=== PATIENT | female | born 1960 | race Caucasian/White ===

== ENCOUNTER 2017-04-22 11:06 | Inpatient (IN) | payer OTHER ==
[~2017-04-22] VITALS: Ht 167.6 cm; Wt 89.0 kg
[~2017-04-22 11:06] MED LIST: ALBUTEROL 3 ML3 ML INH; ATORVASTATIN CA20 MG PO; AUGMENTIN 875 M1 TAB PO; AZITHROMYCIN D250 MG PO; BUTRANS20 MCG/HR TOP; CARAFATE 1GM1000 MG PO; CYCLOBENZAPRINE10 M1 PO; DIAZEPAM5 MG PO; DILAUDID2 MG PO; FERROUS SULFAT325 M1 PO; HYDRODIURIL 5050 MG PO; HYDROMORPHONE HC2 MG PO; KEPPRA1000 MG PO; KETOROLAC TROME10 M1 PO; LEVETIRACETAM500 MG PO; LEVOFLOXACIN500 MG PO; LIORESAL 10MG T10 MG PO; MACRODANTIN 50M50 MG PO; MAG-OX 400400 MG PO; MASON NATURAL325 MG PO; MELOXICAM7.5 MG PO; MILK OF MAGNESI30 ML PO; MOBIC15 M1 PO; MOTRIN 600 MG600 MG PO; NATURAL IRON65 MG PO; OXYCODONE HYDRO10 M1 PO; OXYCODONE5 MG PO; OXYCONTIN10 MG PO; PANTOPRAZOLE SO40 MG PO; PERCOCET 325 MG1 TA2 PO; PERCOCET 325 MG1 TAB; PERCOCET 325 MG1 TAB PO; PERCOCET 5-3251 EACH PO; PERCODAN 325 MG1 TAB PO; POTASSIUM CHLO20 ME1 PO; POTASSIUM GLUC500 MG PO; POTASSIUM GLUC550 MG PO; PREDNICOT20 MG PO; PREDNISONE 20MG20 MG PO; PRILOSEC 20MG C20 MG PO; PROTONIX 40MG T40 MG PO; QUETIAPINE FUM100 MG PO; ROBAXIN500 M1 PO; SEROQUEL 100MG100 MG PO; TEMOVATE0.05% TOP; TIZANIDINE HCL2 MG PO; TRAMADOL HCL50 MG PO; TRAMADOL50 MG PO; TYLENOL TAB 32325 MG PO; VALIUM 10 MG. T10 MG PO; VENTOLIN1 PUF INH; VICODIN 5-3001 EACH PO; VITAB121000 PO; VITAMIN D1000 IU PO; XANAX 0.25MG0.25 MG PO; ZOFRAN 8MG8 MG PO
--- NOTE | 2017-04-22 11:22 | ED DYSPNEA/ASTHMA COMPLAINT ---
History of Present Illness General Chief Complaint: Dyspnea (COPD, CHF, Other) Stated Complaint: SOB ABD PAIN Source: patient Exam Limitations: no limitations Vital Signs & Intake/Output Vital Signs & Intake/Output Vital Signs Date Time Temp Pulse Resp B/P B/P Pulse O2 O2 Flow FiO2 Mean Ox Delivery Rate 04/23 0115 101.1 110 20 130/81 98 Room Air 04/22 2257 97.1 111 24 124/93 99 Room Air Room Air 04/22 1546 93 16 153/96 96 Room Air 04/22 1500 97.8 04/22 1425 94/56 04/22 1346 97.7 99 20 91/71 93 Room Air 04/22 1135 20 100 04/22 1113 97.0 94 20 120/87 ED Intake and Output 04/23 0000 04/22 1200 Intake Total 4000 Output Total 150 Balance 3850 Intake, IV 4000 Number 6 Bowel Movements Output, Urine 150 Patient 160 lb Weight Weight Reported by Patient Measurement Method Allergies Coded Allergies: No Known Allergies (10/17/16) Triage Note: PT C/O ABDOMINAL PAIN AND SOB SINCE LAST NIGHT. STATES THIS MORNING STARTED WITH N/V/D.. Triage Nurses Notes Reviewed? yes Onset: Abrupt Duration: day(s): (1), constant, continues in ED, getting worse Timing: single episode today Severity: moderate, severe Activities at Onset: none Prior Episodes/Possible Cause: occasional episodes Modifying Factors: Worsens With: movement. Associated Symptoms: anxiety, loss of appetite, NAUSEA, VOMITING, DIARRHEA, SHORTNESS OF BREATH LMP (ages 10-50): post menopausal : No Patient currently breastfeeds: No HPI: 57-year-old female past medical history of chronic back pain, multiple sclerosis , opioid dependence, COPD, mesothelioma status post right lobectomy, pancreatitis and anxiety presents for evaluation of shortness of breath and abdominal pain. Patient states that symptoms began acutely this morning and have been getting worse. Pain is located diffusely in her lower abdomen and does not radiate. Discussed pain is sharp stabbing pain. She states she's never had this pain before. It associated with nausea vomiting and diarrhea. No blood. Unsure exactly how many episodes of each she has had. She also reports associated shortness of breath and anxiety. No coughing hemoptysis or chest pain. No fever no new back pain. She is not taking any medicine for this. She states that the pain is a 10 out of 10. It gets worse with sitting forward and lying back. No recent surgeries or trauma. No lower extremity edema. (Gautam Mccray) Reconcile Medications Calcium Carbonate (TUMS) 200 MG CALCIUM (500 MG) TAB.CHEW 2 TAB PO Q4 GERD ( Reported) Hydrochlorothiazide 50 MG TABLET 1 TAB PO QAM DIURETIC (Reported) Levetiracetam 1,000 MG TABLET 1 TAB PO BID SEIZURES (Reported) Quetiapine Fumarate 100 MG TABLET 1 TAB PO QAM sleep (Reported) Quetiapine Fumarate 100 MG TABLET 5 TAB PO QHS SLEEP (Reported) (Praveen ALLEN,dAonay Lam) Past History Travel History Traveled to [place] past 21 day No Medical History Any Pertinent Medical History? see below for history Neurological: multiple sclerosis, seizure Cardiovascular: hypertension Respiratory: COPD, pneumonia, Mesothelioma S/P right lobectomy Gastrointestinal: GERD, pancreatitis, Cholecystitis S/P ERCP Musculoskeletal: chronic back pain, disk herniation (L 3, 4, 5), osteoarthritis, SPINAL FUSION Psychiatric: opioid dependence Cancer(s): MESOTHELIOMA History of MRSA: No History of VRE: No History of CDIFF: No Surgical History Surgical History: hysterectomy, spinal fusion, LAMINECTOMY MASECTOMY RIGHT LUNG REMOVED 12 RIBS REMOVED R lobectomy, rib resection right lobectomy Psychosocial History Who do you live with Spouse Services at Home None What is your primary language Divehi Tobacco Use: Quit >30 days ago ETOH Use: denies use Illicit Drug Use: denies illicit drug use Family History Family History, If Any: FATHER (myocardial infarction). MOTHER (lewy body dementia). Hx Contributory? No (Gautam Mccray) Review of Systems Review of Systems Constitutional: Reports: no symptoms. EENTM: Reports: no symptoms. Respiratory: Reports: see HPI, short of breath. Cardiovascular: Reports: no symptoms. GI: Reports: see HPI, abdominal pain, diarrhea, nausea, vomiting. Genitourinary: Reports: no symptoms. Musculoskeletal: Reports: no symptoms. Skin: Reports: no symptoms. Neurological/Psychological: Reports: no symptoms. Hematologic/Endocrine: Reports: no symptoms. Immunologic/Allergic: Reports: no symptoms. All Other Systems: Reviewed and Negative (Gautam Mccray) Physical Exam Physical Exam General Appearance: well developed/nourished, alert, awake, anxious, severe distress Head: atraumatic, normal appearance Eyes: Bilateral: normal appearance, PERRL, EOMI. Ears, Nose, Throat: hearing grossly normal Neck: normal inspection, supple, full range of motion Respiratory: normal breath sounds, chest non-tender, no respiratory distress, lungs clear Cardiovascular: regular rate/rhythm, normal peripheral pulses Peripheral Pulses: 2+ radial (R), 2+ radial (L) Gastrointestinal: normal bowel sounds, soft, no organomegaly, tenderness ( DIFFUSE WORSE LOWER QUADRANTS) Extremities: normal inspection, normal range of motion, no edema Neurologic/Psych: no motor/sensory deficits, awake, alert, oriented x 3 Skin: intact, normal color, warm/dry Lymphatic: no anterior cervical avery Core Measures ACS in differential dx? Yes CVA/TIA Diagnosis No Sepsis Present: No Sepsis Focused Exam Completed? Yes (Frank CADE,Gautam) Progress Differential Diagnosis: AMI, bronchitis, CHF, COPD, pulmonary embolism, pneumonia, ACUTE PANCREATITIS, CHOLECYSTITIS, APPENDICITIS, SMALL BOWEL OBSTRUCTION, DIVERTICULITIS Plan of Care: Orders Procedure Date/time Status Nothing by Mouth 04/23 B Active CBC WITHOUT DIFFERENTIAL 04/23 06 Active BASIC ELECTROLYTES PLUS BUN&CR 04/23 0600 Active TROPONIN LEVEL 04/23 0400 Active EKG 04/23 0400 Active LACTIC ACID 04/23 0300 Active RAPID VIRAL INFLUENZA A 04/23 0210 Complete Add-on Test (ER Only) 04/22 2215 Active EKG 04/22 2200 Active STOOL:R/O VIBRIO 04/22 2137 Active Pathway - chart 04/22 2121 Active BLOOD CULTURE 04/22 2118 Active Code Status 04/22 2118 Active TROPONIN LEVEL 04/22 2047 Complete CALCIUM 04/22 2047 Complete Pathway - chart 04/22 2046 Active House Staff 04/22 2046 Active LACTIC ACID 04/22 2046 Complete CULTURE,URINE 04/22 1906 Active URINE DRUGS OF ABUSE 04/22 1906 Complete Misc Message 04/22 1846 Active ED Holding Orders 04/22 1846 Active Admit to inpatient 04/22 1846 Active Vital Signs 04/22 1846 Active Code Status 04/22 1846 Complete Patient Data 04/22 1834 Active EKG 04/22 1630 Active LACTIC ACID 04/22 1432 Complete CULTURE,STOOL 04/22 1419 Active OVA AND PARASITE ANTIGENS 04/22 1419 Active C.DIFFICILE 04/22 1419 Active URINALYSIS 04/22 1307 Complete PARATHYROID HORMONE 04/22 1227 Complete TROPONIN LEVEL 04/22 1132 Complete MAGNESIUM 04/22 1132 Complete LIPASE 04/22 1132 Complete LACTIC ACID 04/22 1132 Complete D-DIMER 04/22 1132 Complete C-REACTIVE PROTEIN 04/22 1132 Complete COMPREHENSIVE METABOLIC PANEL 04/22 1132 Complete CBC WITHOUT DIFFERENTIAL 04/22 1132 Complete Intake & Output 04/22 1123 Active EKG 04/22 1107 Active Lab Add-on Test 04/22 UNK Active VTE Mechanical Prophylaxis 04/22 UNK Active Vital Signs 04/22 UNK Active Isolation 04/22 UNK Active Intake & Output 04/22 UNK Active ECHOCARDIOGRAM 04/22 UNK Active Current Medications Sig/Trace Start time Last Medication Dose Stop Time Status Admin Ceftriaxone Sodium 1,000 MG DAILY 04/23 1000 AC (Rocephin) Quetiapine Fumarate 100 MG QAM 04/23 1000 AC (Seroquel) Acetaminophen 1,000 MG Q8P PRN 04/23 0145 AC (Ofirmev) N/A 1 UNIT (No Carrier) Vancomycin HCl 125 MG Q6 04/23 0145 AC Lactated Ringer's 1,000 ML ONCE ONE 04/23 0115 AC (Lactated Ringers) 04/23 0314 Metronidazole 500 MG IQ8 04/23 0000 AC 04/23 (Flagyl) 0042 N/A 1 UNIT (No Carrier) Quetiapine Fumarate 500 MG AT BEDTIME 04/22 2345 AC 04/23 (Seroquel) 0042 Lactated Ringer's 1,000 ML Q10H 04/22 2330 AC 04/23 (Lactated Ringers) 04/24 0529 0043 Heparin Sodium 5,000 UNIT Q8 04/22 2200 AC 04/22 (Porcine) 2254 Levetiracetam 1,000 MG BID 04/22 2200 AC 04/22 (Keppra) 2254 Acetaminophen 1,000 MG Q8P PRN 04/22 2130 AC (Ofirmev) N/A 1 UNIT (No Carrier) Morphine Sulfate 2 MG Q4-6 PRN PRN 04/22 2130 AC (Morphine) Oxycodone HCl 5 MG Q6H 04/22 2130 AC 04/22 (Roxicodone) 2254 Trimethobenzamide HCl 200 MG TID PRN 01/06 2130 AC (Tigan) Hydromorphone HCl 1 MG ONCE ONE 04/22 1145 CAN (Dilaudid) 04/22 114 Ondansetron HCl 4 MG ONCE ONE 04/22 1145 CAN (Zofran) 04/22 1146 Laboratory Tests 04/23/17 0025: Lactic Acid 6.8 H 04/23/17 0025: Calcium 9.5, Troponin I 0.02 04/22/17 2131: Methadone Screen Cancelled, Barbiturate Screen Cancelled, Ur Phencyclidine Scrn Cancelled, Amphetamines Screen Cancelled, U Benzodiazepines Scrn Cancelled, Urine Cocaine Screen Cancelled, Urine Cannabis Screen Cancelled 04/22/17 2048: Calcium Cancelled 04/22/17 1906: Urine Opiates Screen 1716.00, Methadone Screen 77, Barbiturate Screen < 60, Ur Phencyclidine Scrn 14.40, Amphetamines Screen < 100, U Benzodiazepines Scrn < 85 , Urine Cocaine Screen < 50, Urine Cannabis Screen 74.50 H, Urine Color ORANG H, Urine Clarity CLEAR, Urine pH 6.5, Ur Specific [place] >= 1.030, Urine Protein TRACE H, Urine Ketones TRACE H, Urine Nitrite NEG, Urine Bilirubin NEG @ICTO, Urine Urobilinogen 1.0, Ur Leukocyte Esterase NEG, Ur Microscopic SEDIMENT EXAMINED, Urine WBC 3-5 H, Ur Epithelial Cells FEW, Urine Bacteria MANY H, Hyaline Casts FEW H, Granular Casts FEW H, Urine Mucus FEW, Urine Hemoglobin NEG, Urine Glucose NEG 04/22/17 1630: Troponin I Cancelled 04/22/17 1541: Lactic Acid 4.9 H 04/22/17 1227: Anion Gap 19 H, Estimated GFR 57 L, BUN/Creatinine Ratio 21.0, Glucose 168 H, Lactic Acid 3.1 H, Calcium 11.2 H, Magnesium 2.3, Total Bilirubin 0.5, AST 36, ALT 32, Alkaline Phosphatase 177 H, Troponin I < 0.01, C-Reactive Prot, Quant < 0.5, Total Protein 7.7, Albumin 4.6, Globulin 3.1, Albumin/Globulin Ratio 1.5, Lipase 34, PTH Intact 18.6, D-Dimer High Sensitivty 526 H, CBC w Diff MAN DIFF ORDERED, RBC 4.85, MCV 98.3, MCH 32.3 H, RDW 12.6, MPV 8.4, Gran % 84.2 H, Lymphocytes % 10.7 L, Monocytes % 4.7, Eosinophils % 0.2, Basophils % 0.2, Absolute Granulocytes 14.3 H, Segmented Neutrophils 71, Band Neutrophils 7 H, Absolute Lymphocytes 1.8, Lymphocytes 17 L, Monocytes 5, Absolute Monocytes 0.8 H, Absolute Eosinophils 0, Absolute Basophils 0, Platelet Estimate VERIFIED BY SMEAR, Normocytic RBCs VERIFIED, Normochromic RBCs VERIFIED, PUBS MCHC 32.9 L Microbiology 04/23 0213 NASOPHARYN: Influenza Virus A & B Rapid Smear - COMP 04/23 0055 BLOOD: Blood Culture - RECD 04/230 BLOOD: Blood Culture - RECD 04/22 2124 URINE ROUT: Urine Culture - CAN Cancelled: Cancelled via OE: DONE ADD ON 04/22 190 URINE ROUT: Urine Culture - RECD 04/22 1519 STOOL: Vibrio Culture - RECD 04/22 1519 STOOL: Cryptosporidium Antigen - RECD 04/22 1519 STOOL: Giardia Antigen (JENNA) - RECD 04/22 1519 STOOL: Clostridium difficile Toxin A & B - RECD 04/22 1519 STOOL: Stool Culture - RECD Patient seen and evaluated. She appears to be in significant distress constantly moving on the stretcher holding her abdomen. Vital signs are stable she's not tachycardic or hypoxic. She does not appear to be tachypneic. Her abdomen is diffusely tender. Patient will get basic blood work EKG. She'll likely need a CT scan of her abdomen and pelvis possibly her chest. Patient was medicated with IV Zofran and IV Dilaudid. Patient's lactic acid is elevated to 3. Fluids ordered. Patient had multiple bowel movements in her bed of watery diarrhea. Stool culture sent. Her repeat blood pressures 90s over 70s. Additional fluids ordered. Patient has an elevated d-dimer and if short of breath. Patient will get a CTA of her chest abdomen and pelvis. Patient has had difficult venous access. She does have a 22-gauge but multiple nurses have been attempting to place a 20 without success. She has tachypnea and reporting shortness of breath she has an elevated d-dimer history of cancer. Her blood pressure has improved significantly after fluids. She saw reporting significant pain another milligram of Dilaudid was ordered. Repeat EKG and troponin also ordered. Her initial EKG showed diffuse ST segment changes that was different from her EKG from last year. Patient states she had an EKG done 3 weeks ago with her primary care doctor. A call was placed to the primary care's office to attempt to see with the EKG look like. After multiple different tries were unable to place a 20-gauge IV catheter. photocopier technician stated we cannot place an EJ for PE study. Patient will get ultrasounds of her bilateral lower extremities and a noncontrast CT of her abdomen and pelvis. Patient is not tachycardic or hypoxic. No chest pain. Low suspicion for PE but this must be considered. After 2 L of saline her lactic acid X he went up to 4.9. She'll likely require admission. CT scan shows diffuse colitis. No other acute findings. Patient will be covered with Flagyl and ceftriaxone. She'll require admission to the hospital for additional IV antibiotics IV fluids GI consult IV pain meds, VQ scan to rule out PE, serial labs follow-up cultures. Considered heparinizing patient for suspicion of PE however suspicion is low. D-dimer is only mildly elevated. She got tachycardic or hypoxic. No physical signs of DVT. No previous history of the vTE. Case discussed with Dr. Blake he agrees. Patient does meet Sirs criteria. There was a delay in getting antibiotic therapy on board because it was not clear where the source of her infection was. She is afebrile. CT read did not come in until after 5:00pm. Diagnostic Imaging: Viewed by Me: Radiology Read, CT Scan, Ultrasound. Discussed w/RAD: Radiology Read, CT Scan, Ultrasound. Radiology Impression: PATIENT: VEL GARY PRESENT AGE: 57 PATIENT ACCOUNT NO: [id number] : 60 LOCATION: [facility] ORDERING PHYSICIAN: Gautam CADE SERVICE DATE: 04/22/17 EXAM TYPE: US - US-EXT BILAT VENOUS DOPPLER EXAMINATION: US TRIPLEX OF LOWER EXTREMITIES, BILATERAL CLINICAL INFORMATION: Positive d-dimer. Shortness of breath. Lower extremity edema. VTE DVT suspected COMPARISON: None TECHNIQUE: Color-flow triplex imaging with spectral analysis and compression Doppler were performed on the lower extremities. FINDINGS: Respiratory variation, normal compression and augmented flow are noted throughout the lower extremities. The visualized common femoral vein, superficial femoral vein, profunda femoral vein, popliteal vein and midcalf peroneal and posterior tibial venous segments show no evidence of deep venous thrombosis. There is no Pedro's cyst. IMPRESSION: Normal triplex scan without evidence of deep venous thrombosis involving the lower extremities. DICTATED BY: Jose F Nichole MD DATE/TIME DICTATED:04/22/171808 PATIENT ASSISTANT:HAKEEM DATE/TIME TRANSCRIBED:04/22/171808, PATIENT: VEL GARY PRESENT AGE: 57 PATIENT ACCOUNT NO: [id number] : 60 LOCATION: [facility] ORDERING PHYSICIAN: Gautam CADE SERVICE DATE: 04/22/17 EXAM TYPE: CAT - CT ABD & PELVIS W/O IV CONTRAS EXAMINATION: CT ABDOMEN AND PELVIS WITHOUT CONTRAST CLINICAL INFORMATION: Diffuse abdominal pain. Nausea, vomiting, diarrhea. Presumptive diagnosis of diverticulitis, colitis. COMPARISON: CT scan of the abdomen and pelvis dated 06/06/2015. TECHNIQUE: Multidetector volumetric imaging was performed from the superior aspect of the liver through the pubic symphysis. Sagittal and coronal reformatted images were obtained on the technologist workstation. DLP: 890.99 mGy-cm. FINDINGS: LUNG BASES: The visualized lung bases are unremarkable. LIVER, GALLBLADDER, AND BILIARY TREE: The liver is normal in size, shape, and attenuation. No focal hepatic lesion on noncontrast imaging. No biliary ductal dilatation is present. The gallbladder is unremarkable with no evidence of radiopaque gallstones, gallbladder wall thickening, or obvious pericholecystic inflammatory changes. PANCREAS, SPLEEN, ADRENAL GLANDS: Unremarkable on noncontrast imaging. KIDNEYS AND URETERS: The kidneys are normal in size, shape, and attenuation. No hydronephrosis, hydroureter, or calculi seen. No perinephric stranding. BLADDER: Unremarkable. PELVIC VISCERA: The patient is status post hysterectomy and presumably oophorectomy. No suspicious adnexal mass. GASTROINTESTINAL TRACT: As noted previously, the transverse, descending and rectosigmoid colon show mild diffuse wall thickening with large amount of fecal material distending the lumen. Minimal fat stranding is seen surrounding the descending and sigmoid colon and findings raise the suspicion of subtle low- grade or chronic colitis. No pneumatosis, bowel perforation or bowel obstruction is seen. Appendix is unremarkable. Terminal ileum and small bowel loops are decompressed and unremarkable. There is fluid distention of the stomach. ABDOMINAL WALL: There is diastases of the rectus abdominis muscles with fatty atrophy of the right rectus abdominis muscle and right lateral bulging of the peritoneum. No significant hernia formation is seen. LYMPH NODES, VASCULAR: Moderate atherosclerotic calcifications of the abdominal aorta are noted. Flattening of the IVC is seen, suggesting significant low blood volume/low hydrational status. OSSEOUS STRUCTURES: Diffuse osteopenia and S-shaped thoracal lumbar scoliosis with multilevel degenerative changes in the spine are seen. There is evidence of posterior spinal decompression with L4-L5 disc spacer noted. Severe degenerative disc disease is seen at L3-L4 with disc space narrowing, vacuum disc phenomenon, grade 1 anterolistheses and vertebral endplate spurring and cystic changes. Moderate degenerative change also seen at the lumbosacral junction. IMPRESSION: Findings are suspicious for diffuse colitis, primarily affecting the transverse and descending and sigmoid colon. No evidence of bowel obstruction or bowel perforation. DICTATED BY: Natacha Barriga MD DATE/TIME DICTATED:04/22/171722 PATIENT ASSISTANT:HAKEEM DATE/TIME TRANSCRIBED:04/22/171722 CXR Impression: PATIENT: VEL GARY PRESENT AGE: 57 PATIENT ACCOUNT NO: [id number] : 60 LOCATION: [facility] ORDERING PHYSICIAN: Gautam CADE SERVICE DATE: 04/22/17 EXAM TYPE: RAD - XRY-PORTABLE CHEST XRAY EXAMINATION: XR PORTABLE CHEST CLINICAL INFORMATION: Abdominal pain with shortness of breath COMPARISON: June 06, 2015 and September 28, 2014 TECHNIQUE: Portable AP view of the chest was obtained. FINDINGS: Patient status post previous right lung surgery with loss of volume and shift of mediastinal structures to the right. No pneumothorax appreciated. Heart normal size. No evidence of pulmonary edema. There is some gas seen under the left hemidiaphragm likely related to gas within the stomach. No free air is seen under the right hemidiaphragm. IMPRESSION: Stable right lung postsurgical change. Small lung volumes. No definite acute parenchymal disease. DICTATED BY: Timmy Soriano MD DATE/TIME DICTATED:04/22/171255 PATIENT ASSISTANT:TA DATE/TIME TRANSCRIBED:04/22/171255 CONFIDENTIAL, DO NOT COPY WITHOUT APPROPRIATE AUTHORIZATION. Initial ED EKG: normal sinus rhythm, DIFFUSE T WAVE INVERSIONS/FLATTENING Prior EKG: changed Repeat EKG: unchanged (Gautam Mccray) Comments: 04/22/2017 3:29:46 PM Vel has no chest pain or chest discomfort at this time. The ST segment changes seen on EKG are difficult to interpret. She states that she had AN EKG about 3 weeks ago at her primary care physician's office. I've asked ALYSSIA Florez to contact patient's primary care physician in order to obtain a copy of the EKG. (Lou ALLEN,Jake Donohue) ED Sepsis Exam Date of Focused Sepsis Exam: 04/22/17 Time of Focused Sepsis Exam: 1300 Sepsis Cardiac Exam: Regular Rate/Rhythm Sepsis Resp Exam: CTA Sepsis Cap Refill Exam: <2 Sec Sepsis Peripheral Pulse Exam: Normal Sepsis Peripheral Pulse Location: Radial Sepsis Skin Color Exam: Normal for Ethnicity Skin Temp/Moisture Exam: Warm/Dry (Gautam Mccray) Departure Departure Disposition: STILL A PATIENT Condition: Stable Clinical Impression Primary Impression: Colitis Secondary Impressions: Acute electrocardiogram changes, Lactic acidosis Referrals: Raul Cash MD (PCP/Family) Departure Forms: Customer Survey General Discharge Information Admission Note Spoke With: Yaa Harvey MD Documentation of Exam: Documentation of any treatments & extenuating circumstances including Concerns Regarding Discharge (functional status, medication knowledge or non-compliance, living conditions, etc.) that warrant an admission rather than observation: [IV antibiotics, IV fluids, serial EKGs, serial troponins, serial labs, follow-up stool studies, telemetry monitoring, cardiology consult, GI consult] (Gautam Mccray) PA/NARROW GAUGE BRAKEMAN Co-Sign Statement Statement: ED Attending supervision documentation- [X] I saw and evaluated the patient. I have also reviewed all the pertinent lab results and diagnostic results. I agree with the findings and the plan of care as documented in the PA's/NARROW GAUGE BRAKEMAN's documentation. Patient presents for evaluation of abdominal pain and shortness of breath. She denies chest pain. Physical examination reveals a tired-appearing patient in no acute respiratory distress. [] I have reviewed the ED Record and agree with the PA's/NARROW GAUGE BRAKEMAN's documentation. [] Additions or exceptions (if any) to the PAs/NARROW GAUGE BRAKEMAN's note and plan are summarized below: [] (Lou ALLEN,Jake Donohue) Procedures Central Line Central Line Lumen: triple Central Line Procedure: Yes: bentadine prep?, sterile drapes applied, sterile dressing applied. Central Line Position: femoral (R) Anesthesia: lidocaine 1% CC's of Anesthesia: 3 Complications: none Central Line Post Position: sutured, good blood return (Praveen ALLEN,Adonay Lam) Critical Care Note Critical Care Note Critical Care Time: non-applicable (Gautam Mccray)
[2017-04-22] MEDS ORDERED: HYDROCHLOROTHIA50 M1 PO (12:07)
[2017-04-22] MEDS ORDERED: LEVETIRACETAM1000 M1 PO (12:08)
[2017-04-22] MEDS ORDERED: QUETIAPINE FUM100 M1 PO ×2 (12:08→21:15)
[2017-04-22 12:44] LABS: ABSOLUTE BASOPHIL COUNT 0 /CUMM (0.0-0.2); ABSOLUTE EOSINOPHIL COUNT 0 /CUMM (0.0-0.7); ABSOLUTE GRANULOCYTE CT 14.3 /CUMM (1.4-6.5); ABSOLUTE LYMPH COUNT 1.8 /CUMM (1.2-3.4); ABSOLUTE MONOCYTE COUNT 0.8 /CUMM (0.10-0.60); BASOPHIL % 0.2 % (0.0-2.0); EOSINOPHIL % 0.2 % (0-5); GRANULOCYTE % 84.2 % (42.2-75.2); HEMATOCRIT 47.7 % (37-47); MEAN CORPUSCULAR HGB 32.3 PG (27.0-31.0); MEAN CORPUSCULAR HGB CONC 32.9 G/DL (33.0-37.0); MEAN CORPUSCULAR VOLUME 98.3 FL (81.0-99.0); MEAN PLATELET VOLUME 8.4 FL (7.4-10.4); PLATELET COUNT 319 /CUMM (130-400); RBC DISTRIBUTION WIDTH 12.6 % (11.5-14.5); RED BLOOD CELL CT 4.85 /CUMM (4.20-5.40)
--- NOTE | 2017-04-22 13:03 | RADIOLOGY REPORT ---
EXAMINATION: XR PORTABLE CHEST CLINICAL INFORMATION: Abdominal pain with shortness of breath COMPARISON: June 06, 2015 and September 28, 2014 TECHNIQUE: Portable AP view of the chest was obtained. FINDINGS: Patient status post previous right lung surgery with loss of volume and shift of mediastinal structures to the right. No pneumothorax appreciated. Heart normal size. No evidence of pulmonary edema. There is some gas seen under the left hemidiaphragm likely related to gas within the stomach. No free air is seen under the right hemidiaphragm. IMPRESSION: Stable right lung postsurgical change. Small lung volumes. No definite acute parenchymal disease.
--- NOTE | 2017-04-22 17:44 | CT SCAN REPORT ---
EXAMINATION: CT ABDOMEN AND PELVIS WITHOUT CONTRAST CLINICAL INFORMATION: Diffuse abdominal pain. Nausea, vomiting, diarrhea. Presumptive diagnosis of diverticulitis, colitis. COMPARISON: CT scan of the abdomen and pelvis dated 06/06/2015. TECHNIQUE: Multidetector volumetric imaging was performed from the superior aspect of the liver through the pubic symphysis. Sagittal and coronal reformatted images were obtained on the technologist workstation. DLP: 890.99 mGy-cm. FINDINGS: LUNG BASES: The visualized lung bases are unremarkable. LIVER, GALLBLADDER, AND BILIARY TREE: The liver is normal in size, shape, and attenuation. No focal hepatic lesion on noncontrast imaging. No biliary ductal dilatation is present. The gallbladder is unremarkable with no evidence of radiopaque gallstones, gallbladder wall thickening, or obvious pericholecystic inflammatory changes. PANCREAS, SPLEEN, ADRENAL GLANDS: Unremarkable on noncontrast imaging. KIDNEYS AND URETERS: The kidneys are normal in size, shape, and attenuation. No hydronephrosis, hydroureter, or calculi seen. No perinephric stranding. BLADDER: Unremarkable. PELVIC VISCERA: The patient is status post hysterectomy and presumably oophorectomy. No suspicious adnexal mass. GASTROINTESTINAL TRACT: As noted previously, the transverse, descending and rectosigmoid colon show mild diffuse wall thickening with large amount of fecal material distending the lumen. Minimal fat stranding is seen surrounding the descending and sigmoid colon and findings raise the suspicion of subtle low-grade or chronic colitis. No pneumatosis, bowel perforation or bowel obstruction is seen. Appendix is unremarkable. Terminal ileum and small bowel loops are decompressed and unremarkable. There is fluid distention of the stomach. ABDOMINAL WALL: There is diastases of the rectus abdominis muscles with fatty atrophy of the right rectus abdominis muscle and right lateral bulging of the peritoneum. No significant hernia formation is seen. LYMPH NODES, VASCULAR: Moderate atherosclerotic calcifications of the abdominal aorta are noted. Flattening of the IVC is seen, suggesting significant low blood volume/low hydrational status. OSSEOUS STRUCTURES: Diffuse osteopenia and S-shaped thoracal lumbar scoliosis with multilevel degenerative changes in the spine are seen. There is evidence of posterior spinal decompression with L4-L5 disc spacer noted. Severe degenerative disc disease is seen at L3-L4 with disc space narrowing, vacuum disc phenomenon, grade 1 anterolistheses and vertebral endplate spurring and cystic changes. Moderate degenerative change also seen at the lumbosacral junction. IMPRESSION: Findings are suspicious for diffuse colitis, primarily affecting the transverse and descending and sigmoid colon. No evidence of bowel obstruction or bowel perforation.
--- NOTE | 2017-04-22 18:18 | ULTRASOUND REPORT ---
EXAMINATION: US TRIPLEX OF LOWER EXTREMITIES, BILATERAL CLINICAL INFORMATION: Positive d-dimer. Shortness of breath. Lower extremity edema. VTE DVT suspected COMPARISON: None TECHNIQUE: Color-flow triplex imaging with spectral analysis and compression Doppler were performed on the lower extremities. FINDINGS: Respiratory variation, normal compression and augmented flow are noted throughout the lower extremities. The visualized common femoral vein, superficial femoral vein, profunda femoral vein, popliteal vein and midcalf peroneal and posterior tibial venous segments show no evidence of deep venous thrombosis. There is no Pedro's cyst. IMPRESSION: Normal triplex scan without evidence of deep venous thrombosis involving the lower extremities.
--- NOTE | 2017-04-22 20:33 | History & Physical ---
Darrel Quinonez MD 04/22/172031: General Information and HPI MD Statement: I have seen and personally examined VEL GARY and documented this H&P. The patient is a 57 year old F who presented with a patient stated chief complaint of [abdominal pain]. Source of Information: patient, family, old records Exam Limitations: clinical condition History of Present Illness: Patient is a 57-year-old female with past medical history of multiple sclerosis, chronic back pain, L3 to L5 disc herniation status post spinal fusion, mesothelioma status post right lung Resection, seizures, acute cholecystitis status post ERCP, COPD, history of stomach ulcers, opioid dependence patient presents this admission with chief complaint of abdominal pain and shortness of breath. Patient's was at bedside and provided the majority of the history as patient was in moderate distress. Patient has been experiencing abdominal pain over the last 3 days which has been worsening in severity. Pain is described as severe, cramping nonradiating abdominal pain initially was located in the epigastric region and then became diffusely tender. Patient states that she initially had nausea and nonbloody bilious vomiting along with loose diarrhea which became watery. Patient states that she has had approximately 6 nonbloody bowel movements per day. Per patient she has not eaten anything since dinner the previous night. Patient states that this is the first time these type of symptoms. Patient endorses chills, dizziness, lightheadedness, decreased appetite, shortness of breath with orthopnea and paroxysmal nocturnal dyspnea however during the time of the interview patient was lying flat with no respiratory distress. Patient denies fever, chest pain, palpitations, dysuria/ hematuria. Patient and her deny any sick contacts, travel history outside of the [place] , eating anything unusual, tick bites. Patient states her last MS flare was approximately 6 months prior to this admission. Review of systems: Negative except for as above Past medical history: See above, colonoscopy a few years ago Surgical history: Status post 2 lobectomies of the right lung, spinal fusion Social history: Former smoker quit approximately 10 years ago previously smoking 1 pack per day for approximately 20 years, denies alcohol use, denies illicit drug use Previous hospitalization: In 2016 [place] Allergies: Denies any allergies to any medications On admission: Vitals: MAXIMUM TEMPERATURE: 97.8, heart rate 93-99, respiration rate 16-20, blood pressure: 91/71-153/96, pulse ox 93-100% on RA Labs: WBC 17.0 with 84.2% granulocytes and 7 bands, H&H 15.7 and 47.7, platelets: 319 Sodium 141, potassium 2.5, chloride 101, bicarbonate 22, anion gap 19, BUN 21, creatinine 1, glucose 168, calcium 11.2, magnesium 2.3, T bili 0.5, AST 36, AST 32, alkaline phosphatase 177, lactic acid 3.1 and trended up to 4.9, troponin less than 0.1, CRP less than 0.5, lipase 34, D-dimer 526 UA: Jackson tinged, 3-5 WBC, many bacteria, few hyaline casts, few granular casts EKG: Sinus rhythm with a heart rate of 96, T wave inversions in V3 to V6 Imaging: Chest x-ray: Stable right lung postsurgical change. Small lung volumes. No definite acute parenchymal disease. Doppler: Normal triplex scan without evidence of deep venous thrombosis involving the lower extremities. CT abdomen and pelvis: Findings are suspicious for diffuse colitis, primarily affecting the transverse and descending and sigmoid colon. No evidence of bowel obstruction or bowel perforation. Allergies/Medications Allergies: Coded Allergies: No Known Allergies (10/17/16) Past History Travel History Traveled to [place] past 21 day No Medical History Neurological: multiple sclerosis, seizure Cardiovascular: hypertension Respiratory: COPD, pneumonia, Mesothelioma S/P right lobectomy Gastrointestinal: GERD, pancreatitis, Cholecystitis S/P ERCP Musculoskeletal: chronic back pain, disk herniation (L 3, 4, 5), osteoarthritis, SPINAL FUSION Psychiatric: opioid dependence Cancer(s): MESOTHELIOMA History of MRSA: No History of VRE: No History of CDIFF: No Surgical History Surgical History: hysterectomy, spinal fusion, LAMINECTOMY MASECTOMY RIGHT LUNG REMOVED 12 RIBS REMOVED R lobectomy, rib resection right lobectomy Past Family/Social History Family History Relations & Conditions if any FATHER (myocardial infarction). MOTHER (lewy body dementia). Psychosocial History Who Do You Live With? spouse Services at Home: None ETOH Use: denies use Illicit Drug Use: denies illicit drug use Functional Ability ADLs Independent: dressing, eating, toileting, bathing. Ambulation: independent (right hip pain), cane IADLs Independent: shopping, housework, finances, food prep, telephone, transportation , medication admin. Review of Systems Review of Systems Constitutional: Reports: chills. Denies: fever. Cardiovascular: Denies: orthopena. Respiratory: Reports: short of breath. GI: Reports: see HPI, abdominal pain, diarrhea, nausea, vomiting. Genitourinary: Reports: no symptoms. Musculoskeletal: Reports: no symptoms. Neurological/Psychological: Reports: anxiety, confusion. Hematologic/Endocrine: Denies: no symptoms. Exam & Diagnostic Data Last 24 Hrs of Vital Signs/I&O Vital Signs Date Time Temp Pulse Resp B/P B/P Pulse O2 O2 Flow FiO2 Mean Ox Delivery Rate 04/23 799 98.2 98 22 110/62 96 Room Air 04/23 0623 98.4 104 20 104/64 99 Room Air 04/23 0517 112 93/60 04/23 0449 99.6 04/23 0404 114 18 105/61 98 04/23 0337 101.0 118 20 102/58 97 Room Air 04/23 0315 113 114/68 04/23 0308 101.1 04/23 0115 101.1 110 20 130/81 98 Room Air 04/22 2257 97.1 111 24 124/93 99 Room Air Room Air 04/22 1546 93 16 153/96 96 Room Air 04/22 1500 97.8 04/22 1425 94/56 04/22 1346 97.7 99 20 91/71 93 Room Air Intake & Output 04/23 1600 04/23 0800 04/23 0000 Intake Total 2300 2000 Output Total 150 Balance 2300 1850 Intake, IV 2300 2000 Number 1 2 Bowel Movements Output, Urine 150 Patient 196 lb Weight Weight Bed scale Measurement Method Physical Exam General Appearance Alert, Oriented X3, Cooperative, Moderate Distress Skin skin on arms and legs mottled, psoriatic lesion on left elbow Skin Temp/Moisture Exam: Cool/Dry HEENT Atraumatic, PERRLA, EOMI, dry mucosal membranes Neck Supple, No JVD Lymphatic Cervical nl Cardiovascular Regular Rate, Normal S1, Normal S2, No Murmurs Lungs Clear to Auscultation, Normal Air Movement Abdomen Normal Bowel Sounds, Soft, diffusely tender to palpation greatest in the center of abdomen, no guarding, no rigidity, no rebound Neurological Sensation Intact, Cranial Nerves 3-12 NL Extremities No Clubbing, No Edema, Normal Pulses, No Tenderness/Swelling, legs and arms mottled appearance (patient states this is normal for her) Vascular Normal Pulses, Pulses Symmetrical Last 24 Hrs of Labs/Silver: Laboratory Tests 04/23/17 0259: Troponin I 0.01 04/23/17 0259: Lactic Acid 3.7 H 04/23/17 025: Anion Gap 11, Estimated GFR > 60, BUN/Creatinine Ratio 28.6 H, CBC w Diff MAN DIFF ORDERED, RBC 3.83 L, MCV 98.7, MCH 32.6 H, RDW 12.6, MPV 8.4, Gran % 90.2 H, Lymphocytes % 7.8 L, Monocytes % 2.0, Eosinophils % 0, Basophils % 0, Absolute Granulocytes 9.0 H, Segmented Neutrophils 65, Band Neutrophils 25 H, Absolute Lymphocytes 0.8 L, Lymphocytes 9 L, Monocytes 1 L, Absolute Monocytes 0.2, Absolute Eosinophils 0, Absolute Basophils 0, Platelet Estimate ADEQUATE, Normocytic RBCs VERIFIED, Normochromic RBCs VERIFIED, PUBS MCHC 33.1 04/23/17 0025: Lactic Acid 6.8 H 04/23/17 0025: Calcium 9.5, Troponin I 0.02 04/22/17 2131: Methadone Screen Cancelled, Barbiturate Screen Cancelled, Ur Phencyclidine Scrn Cancelled, Amphetamines Screen Cancelled, U Benzodiazepines Scrn Cancelled, Urine Cocaine Screen Cancelled, Urine Cannabis Screen Cancelled 04/22/17 2048: Calcium Cancelled 04/22/17 1906: Urine Opiates Screen 1716.00, Methadone Screen 77, Barbiturate Screen < 60, Ur Phencyclidine Scrn 14.40, Amphetamines Screen < 100, U Benzodiazepines Scrn < 85 , Urine Cocaine Screen < 50, Urine Cannabis Screen 74.50 H, Urine Color ORANG H, Urine Clarity CLEAR, Urine pH 6.5, Ur Specific Winn >= 1.030, Urine Protein TRACE H, Urine Ketones TRACE H, Urine Nitrite NEG, Urine Bilirubin NEG @ICTO, Urine Urobilinogen 1.0, Ur Leukocyte Esterase NEG, Ur Microscopic SEDIMENT EXAMINED, Urine WBC 3-5 H, Ur Epithelial Cells FEW, Urine Bacteria MANY H, Hyaline Casts FEW H, Granular Casts FEW H, Urine Mucus FEW, Urine Hemoglobin NEG, Urine Glucose NEG 04/22/17 1630: Troponin I Cancelled 04/22/17 1541: Lactic Acid 4.9 H 04/22/17 1227: Anion Gap 19 H, Estimated GFR 57 L, BUN/Creatinine Ratio 21.0, Glucose 168 H, Lactic Acid 3.1 H, Calcium 11.2 H, Magnesium 2.3, Total Bilirubin 0.5, AST 36, ALT 32, Alkaline Phosphatase 177 H, Troponin I < 0.01, C-Reactive Prot, Quant < 0.5, Total Protein 7.7, Albumin 4.6, Globulin 3.1, Albumin/Globulin Ratio 1.5, Lipase 34, PTH Intact 18.6, D-Dimer High Sensitivty 526 H, CBC w Diff MAN DIFF ORDERED, RBC 4.85, MCV 98.3, MCH 32.3 H, RDW 12.6, MPV 8.4, Gran % 84.2 H, Lymphocytes % 10.7 L, Monocytes % 4.7, Eosinophils % 0.2, Basophils % 0.2, Absolute Granulocytes 14.3 H, Segmented Neutrophils 71, Band Neutrophils 7 H, Absolute Lymphocytes 1.8, Lymphocytes 17 L, Monocytes 5, Absolute Monocytes 0.8 H, Absolute Eosinophils 0, Absolute Basophils 0, Platelet Estimate VERIFIED BY SMEAR, Normocytic RBCs VERIFIED, Normochromic RBCs VERIFIED, PUBS MCHC 32.9 L Microbiology 04/23 0700 UPPER RESP: Surveillance Culture - RECD 04/23 07 GI: Surveillance Culture - RECD 04/23 0213 NASOPHARYN: Influenza Virus A & B Rapid Smear - COMP 04/23 0055 BLOOD: Blood Culture - RECD 04/23 0040 BLOOD: Blood Culture - RECD 04/22 2125 URINE ROUT: Urine Culture - CAN Cancelled: Cancelled via OE: DONE ADD ON 04/22 1906 URINE ROUT: Urine Culture - RES 04/22 151 STOOL: Vibrio Culture - RES 04/22 1519 STOOL: Cryptosporidium Antigen - RECD 04/22 151 STOOL: Giardia Antigen (SILVER) - RECD 04/22 151 STOOL: Clostridium difficile Toxin A & B - RES 04/22 151 STOOL: Stool Culture - RES Assessment/Plan Assessment: Patient is a 57-year-old female with past medical history of multiple sclerosis, chronic back pain, L3 to L5 disc herniation status post spinal fusion, mesothelioma status post right lung Resection, seizures, acute cholecystitis status post ERCP, COPD, history of stomach ulcers, opioid dependence patient presents this admission with chief complaint of abdominal pain and shortness of breath. Patient is admitted to the telemetry floor for management of the followin. Severe dehydration associated with diarrhea and vomiting likely 2/2 to pancolitis (infectious vs ichemic) with elevated lactic acidosis. Patient has received approximately 6L of IV fluids with central line placement due to poor venous access. * continue to monitor with low threshold for ICU transfer * continue aggressive IV fluid hydration as patient is continuously having large volume of loose watery diarrhea with continued hypotension and tachycardia * lactic acid has been trending down. Repeat lactic acid ordered for the 6AM. Continue to follow until it is within normal limits (<2). * Started on IV Ceftriaxone and Flagyl to cover for major gram negative bacteria and anaerobes, PO Vancomycin 125 mg for Clostridium difficile as patient has had a history of C.dif in the past. * Follow up for results of stool sent for Clostridium dificile, culture, ova and parasite, Vibrio vulniferus, Giardia 2. Abnormal EKG. Likely secondary to demand ischemia due to dehydration. * Serial troponin and EKG * ECHO in AM * Consult cardiology in AM 3. Hypercalcemia. Likely secondary to large amount of consumption of Tums and dehydration. * Repeat calcium level and serum PTH 4. Seizure disorder * Continue Keppra 5. Insomnia * Continue Seroquel DVT PPX: Heparin SC Diet: NPO - allow for bowel rest Code: Full code As Ranked By This Provider Problem List: 1. Dehydration 2. Colitis 3. Acute electrocardiogram changes Core Measures/Misc (01/01) Acute Coronary Syndrome ACS Diagnosis: No Congestive Heart Failure Congestive Heart Failure Diagnosis No Cerebrovascular Accident CVA/TIA Diagnosis: No VTE (View Protocol) VTE Risk Factors Age>40 No Mechanical VTE Prophylaxis d/t N/A MechProphylax Ordered No VTE Pharm Prophylaxis d/t NA PharmProphylax ordered Sepsis (View protocol) Sepsis Present: No Hoda Leon 04/22/172032: Resident Review Statement Resident Statement: examined this patient, discussed with international guest coordinator, agreed with international guest coordinator, discussed with family, reviewed EMR data (avail), discussed with nursing , discussed with case mgmt, reviewed images, amended to note Other Findings: 55 year old female with past medical history of multiple sclerosis, chronic back pain, L 3, 4 and 5 disc herniations status post spinal fusion surgery, mesothelioma status post right lung resection, seizure disorder, recent acute cholecystitis status post ERCP in Feb 2015, presented to hospital with excruciating acute generalized abdominal pain and shortness of breath since last night. She also endorses nausea, multiple episodes of nonbloody, bilous vomitus, and typical bouts of profuse watery diarrhea that initially started off as loose stools about 3 days ago and has progressively worsened symptoms. Patient denies any recent history of antibiotic use. She denies any blood in her diarrhea. She does endorse chills however denies any fevers. There is no history of sick contact or having anything outside. Patient denies any chest pain however does endorse orthopnea and PND however she is lying flat for us while we were taking the history. She does endorse dizziness however denies any palpitations. Of note her abdominal pain is nonradiating and is very crampy in nature. She does endorse a decreased appetite and has not been on a cruise recently. She states that this has never happened before. She reports epigastric pain as a 6 out of 10. Her review of systems otherwise is unremarkable. Vitals at the time of admission blood pressure 153/96, respiratory rate of 16, pulse 93, saturating 96% on room air. On physical exam she is alert, oriented 3 and in [id number] distress lying in bed. HEENT revealed PERRLA, very dry mucous membranes. Cardiovascular exam pertinent for normal S1, S2, no murmurs rubs or gallops appreciated. Abdominal exam pertinent for abdomen that was soft, tender on palpation in the local area with normal bowel sounds in all 4 quadrants. Examination of the chest did not reveal any rhonchi in chest was clear to auscultation bilaterally. Examination of the lower extremities as well as the upper extremities reveals psoriasis on her left elbow as well as mottled pattern on her upper and lower extremities. Labs pertinent for leukocytosis with a blood cell count of 17,000, H&H of 15.7/ 47.7, MCV of 98.3 and platelet count 319,000. Serum chemistries revealed a sodium of 141, potassium of 3.5, BUN 21 with a creatinine of 1.7 and elevated anion gap of 19. Glucose elevated to 168. Lactic acid was high at 23.1 with subsequent one being 4.9. LFTs pertinent for total bili of 0.5, AST/L2 36/32, alkaline phosphatase of 177 with first set troponin negative less than 0.01. Serum lipase was 34. CRP less than 0.5. D-dimer was 526. UA was orange with trace amount of protein, ketones, 3-5 white blood cells, many bacteria with few hyaline and granular casts. Chest x-ray showed stable lites around postsurgical change, small lung volumes and no definite acute parenchymal disease. There is no evidence of free air under the right hemidiaphragm. Ultrasound lower extremities did not reveal any evidence of deep venous thrombosis. CT of the abdomen and pelvis without IV contrast was done as they were unable to access an IV in the patient. Findings are suspicious for diffuse colitis, primarily affecting the transverse and descending and sigmoid colon, no evidence of bowel obstruction or perforation. EKG revealed heart rate of 96, sinus rhythm, normal axis, T-wave inversions in V3 to V6. In the ER she received normal saline thousand mL boluses 4, Zofran 4 mg IV 1, Flagyl 500 mg IV 1, ceftriaxone has milligrams IV 1 and Dilaudid 2 mg IM 1 as well as 2 mg IV Assessment and plan Admit patient to telemetry given EKG changes. #Severe dehydration associated with diarrhea and vomiting Her CAT scan showed evidence of colitis cannot rule out whether it is infectious colitis does have leukocytosis and she was resuscitated with 6 L of lactated Ringer's. A central line was placed in her in the ER as patient's venous access was very poor. Repeat lactic acid trended down from 6.9-3.8 most liekly 2/2 hypoperfusion. Follow-up repeat lactic acid at 6 AM Meanwhile started on ceftriaxone and Flagyl to call for gram negatives and anaerobes as the patient was shivering and is most likely consistent with having gram-negative bacteremia. Other differentials with profuse diarrhea and vmiting include norvovirus. However,patient doesnot gie any hx of sick contact and has not been in a cruise reecntly. Given her history of multiple sclerosis, she is not a very immunocompetent host. Would send stool for norvovirus PCR. We'll also send stool for culture, Vibrio, giardia, stool for ova na dparasites , C. difficile and started her empirically on by mouth vancomycin as patient does have a history of C. difficile in the past Nothing by mouth for now except for ice chips If blood pressure doesn't improve with hydration, will upgrade to ICU Follow-up urine tox #Abnormal EKG Most likely secondary to dehydration, electrolyte derangements and demand ischemia Trend troponins and EKG at night and 6 AM Echocardiogram to rule out any regional wall motion abnormalities #Hypercalcemia Most likely secondary to dehydration versus being on Tumm's Follow-up repeat calcium level and serum parathyroid hormone level. #Seizure disorder Continue on Keppra thousand milligrams twice a day by mouth #Insomnia Continue on Seroquel 500 mg at bedtime and 100 mg in a.m. Diet Nothing by mouth for now DVT prophylaxis On heparin 5000 international units 3 times a day subcutaneous CODE STATUS Full code Yaa Harvey 04/23/17 0504: General Information and HPI Allergies/Medications Home Med list Calcium Carbonate (TUMS) 200 MG CALCIUM (500 MG) TAB.CHEW 2 TAB PO Q4 GERD ( Reported) Hydrochlorothiazide 50 MG TABLET 1 TAB PO QAM DIURETIC (Reported) Levetiracetam 1,000 MG TABLET 1 TAB PO BID SEIZURES (Reported) Quetiapine Fumarate 100 MG TABLET 1 TAB PO QAM sleep (Reported) Quetiapine Fumarate 100 MG TABLET 5 TAB PO QHS SLEEP (Reported) Attending MD Review Statement Attending Statement Attending MD Statement: examined this patient, discuss w/resident/PA/SUPERVISOR ELECTRIC, agreed w/resident/PA/SUPERVISOR ELECTRIC, reviewed EMR data (avail), reviewed images, amended to note Attending Assessment/Plan: CC: Abdominal pain, Vomiting and diarrhea PMH: Multiple sclerosis, COPD, seizure, chronic back pain with L3 L4-L5 disc fusion, mesothelioma S/P right lobectomy, S/P chemotherapy, questionable history of pancreatitis, history of stomach ulcer, opiate dependence Patient came in ER for worsening abdominal pain. History is mostly obtained from patient's who stated that patient had abdominal pain since last 3-4 days , progressively getting worse, initially started in epigastric region and then it diffuse, crampy in nature, severe, associated with nausea vomiting since last 3 days last vomiting early this morning which is nonbloody and bilious, has diarrhea multiple times, 6 times today, nonbloody, watery. Patient has been eating and drinking okay since last 34 days but nothing since yesterday, patient endorses chills but no fever. She does not have any sick contacts, no recent antibiotic use, no different food intake. Her recent hospitalization was 3 months back at the [facility] for MS flare, patient does not remember what treatment she received. She states that she is not on any multiple sclerosis medications currently last use was proximately 3 months back as mentioned above. No use of prednisone for MS flare or COPD exacerbation. History is limited as patient is very poor historian. She complained of shortness of breath arrival which is markedly improved now, denies any chest pain, palpitations, headache, dizziness. Vitals: Temperature 97.0, pulse 94, RR 20, blood pressure 120/87 trended down to 91/71, saturating 100% on room air On exam: A O 3, not cooperative, no appropriate response, distress due to pain, neck supple, JVD normal, no lymphadenopathy, mucosa extremely dry, no apparent focal neurological deficit, no dependent edema, mottling of skin on her knees, elbows, arms, thighs (patient states that is normal for her) CVS: S1-S2, RRR. RS : Clear to auscultate bilaterally. Abdomen: Soft, diffusely tender, no guarding or rigidity, mild distention bowel sounds present. Patient has profuse diarrhea foul-smelling, nonbloody Labs: WBC 17.1, hemoglobin 15.7, hematocrit 57.7, platelet 319, neutrophils 84%, bands 7, sodium 141, potassium 3.5, chloride 101, bicarbonate 22, BUN 21, creatinine 1.0, glucose 168, calcium 11.2, lactate 3.1, lap LFT unremarkable, troponin 0.01, CRP less than 0.5, d-dimer 526 UA positive for trace protein, trace ketone, WBC 3-5 U tox positive for opiates, cannabis ECG, flattening of T-wave in V3 - V6 CXR:Stable right lung postsurgical change DVT Doppler: Unremarkable CT abdomen and pelvis: Findings are suspicious for diffuse colitis, primarily affecting the transverse and descending and sigmoid colon. No evidence of bowel obstruction or bowel perforation. Assessment and plan 57-year-old female with extensive past medical history was brought in ER for diffuse abdominal pain, nausea vomiting and diarrhea. Abdomen thin severe, crampy, nonradiating, multiple vomitings since last 3 days and diarrhea of one day duration more than 6 times, watery, nonbloody. Patient is extremely dehydrated on examination follows some instructions, oriented, abdomen tender on palpation, no guarding or rigidity, hypoactive bowel sounds. Significant leukocytosis with left shift and lactic acidosis. A CT shows evidence of colitis. Given this profuse diarrhea, rectal tube was placed which had profuse output, but then it was dislodged. Patient was in the ER for extended period of hours and could not get access. Concern for PA in the ER was to get CT angiogram of the chest for elevated d-dimer. Patient's d-dimer even though elevated patient does not have any symptoms of shortness of breath, patient not hypoxic, no risk factors for pulmonary embolism at the same time she is significantly dehydrated secondary to diarrhea and tachycardic because of that. Patient was transiently hypotensive in ER which responded to aggressive hydration but it was very difficult to obtain access on her. even with aggressive hydration her lactic acidosis was trending up to 6.8 maximum given the situation central line was placed in concern for the axis, hydration and giving contrast if required for abdominal CT with IV contrast to rule out any ischemia. The diarrhea appears infectious in origin, was started on Flagyl and ceftriaxone. Later patient had significant fever and again blood pressure trended down, patient was given a dose of oral vancomycin for suspected severe C. difficile. Given her ECG changes , she would require telemetry monitoring, troponin negative. + Severe dehydration + Colitis + Hypercalcemia + Transient hypotension secondary to volume loss + History of Multiple sclerosis, COPD, seizure, chronic back pain with L3 L4-L5 disc fusion, mesothelioma S/P right lobectomy, S/P chemotherapy, questionable history of pancreatitis, history of stomach ulcer, opiate dependence - Admit to telemetry - Continuous telemetry monitoring - Patient may require upgrade to ICU if persistently hypotensive, worsening lactic acidosis - Continue ceftriaxone and metronidazole and by mouth vancomycin - Follow-up stool cultures, stool C. difficile - Aggressive hydration with Ringer's lactate - Check magnesium and phosphate today and tomorrow, replete if low - Serial troponin and EKGs - Cardiology consult in a.m. - Nothing by mouth except ice chips - Continue Keppra IV - Adequate pain control - Discontinue diuretics and anti-hypertensive - DVT prophylaxis
[2017-04-22] MEDS ORDERED: TUMS200 MG PO (21:16)
[2017-04-23 03:23] LABS: ABSOLUTE BASOPHIL COUNT 0 /CUMM (0.0-0.2); ABSOLUTE EOSINOPHIL COUNT 0 /CUMM (0.0-0.7); ABSOLUTE LYMPH COUNT 0.8 /CUMM (1.2-3.4); ABSOLUTE MONOCYTE COUNT 0.2 /CUMM (0.10-0.60); BASOPHIL % 0 % (0.0-2.0); EOSINOPHIL % 0 % (0-5); GRANULOCYTE % 90.2 % (42.2-75.2); MEAN CORPUSCULAR HGB 32.6 PG (27.0-31.0); MEAN CORPUSCULAR HGB CONC 33.1 G/DL (33.0-37.0); MEAN CORPUSCULAR VOLUME 98.7 FL (81.0-99.0); MEAN PLATELET VOLUME 8.4 FL (7.4-10.4); PLATELET COUNT 249 /CUMM (130-400); RBC DISTRIBUTION WIDTH 12.6 % (11.5-14.5); RED BLOOD CELL CT 3.83 /CUMM (4.20-5.40); WHITE BLOOD CELL COUNT 9.9 /CUMM (4.8-10.8)
[2017-04-23 03:40] LABS: HEMATOCRIT 37.8 % (37-47)
--- NOTE | 2017-04-23 05:05 | Admission Certification ---
Admission Certification Certification Statement - As attending physician, I certify that at the time of - admission, based on clinical presentation, severity of - symptoms, need for further diagnostic testing and - therapeutic interventions, and risk of adverse outcomes - without in-hospital treatment, in my clinical assessment, - this patient requires an acute hospital stay for a minimum - of two nights or longer. I have also considered psychsocial - factors such as support system, advanced age, financial - issues, cognitive issues, and failed out-patient treatments, - past re-admission history, safety of patient, and lack of - compliance as applicable. Specific rationale supporting this admission is: Severe colitis, dehydration, ST-T wave changes
[2017-04-23 08:00] VITALS: BP 110/62
--- NOTE | 2017-04-23 09:03 | PN- Housestaff ---
Yanna Chambers 04/23/17 0902: Subjective Follow-up For: Colitis Severe dehydration Hypercalcemia Subjective: Patient was seen and examined. She reports feeling weak and having generalized abdominal pain. She states that her abdominal pain started 3 days ago and she had subjective fever and chills at home. She has remained nothing by mouth for colitis and is on IV fluids. Lactic acid trending down. Review of Systems Constitutional: Reports: see HPI. Objective Last 24 Hrs of Vital Signs/I&O Vital Signs Date Time Temp Pulse Resp B/P B/P Pulse O2 O2 Flow FiO2 Mean Ox Delivery Rate 04/23 799 98.2 98 22 110/62 96 Room Air 04/23 0623 98.4 104 20 104/64 99 Room Air 04/23 0517 112 93/60 04/23 0449 99.6 04/23 0404 114 18 105/61 98 04/23 0337 101.0 118 20 102/58 97 Room Air 04/23 0315 113 114/68 04/23 0308 101.1 04/23 0115 101.1 110 20 130/81 98 Room Air 04/22 2257 97.1 111 24 124/93 99 Room Air Room Air 04/22 1546 93 16 153/96 96 Room Air 04/22 1500 97.8 04/22 1425 94/56 04/22 1346 97.7 99 20 91/71 93 Room Air Intake & Output 04/23 1600 04/23 0800 04/23 0000 Intake Total 2300 2000 Output Total 150 Balance 2300 1850 Intake, IV 2300 2000 Number 1 2 Bowel Movements Output, Urine 150 Patient 196 lb Weight Weight Bed scale Measurement Method Physical Exam General Appearance: Alert, Oriented X3, Cooperative, No Acute Distress Skin: No Rashes HEENT: Atraumatic, PERRLA, EOMI, dry mucous membranes Neck: Supple Cardiovascular: Regular Rate, Normal S1, Normal S2, No Murmurs Lungs: Clear to Auscultation, Normal Air Movement Abdomen: tenderness to palpation lower abdomen Extremities: No Clubbing, No Edema Vascular: Normal Pulses, Pulses Symmetrical Current Medications: Current Medications Sig/Trace Start time Last Medication Dose Route Stop Time Status Admin Acetaminophen 0 .STK-MED ONE 04/23 307 DC IV Acetaminophen 1,000 MG Q8P PRN 04/23 0145 AC 04/23 N/A 1 UNIT IV 0308 Acetaminophen 1,000 MG Q8P PRN 04/22 2130 DC N/A 1 UNIT IV Acetaminophen 0 .STK-MED ONE 04/22 1500 DC IV Acetaminophen 1,000 MG ONCE ONE 04/22 1430 DC 04/22 N/A 1 UNIT IV 04/22 1444 1500 Ceftriaxone Sodium 1,000 MG DAILY 04/23 1000 AC 04/23 IV 1025 Ceftriaxone Sodium 0 .STK-MED ONE 04/22 1834 DC .ROUTE Ceftriaxone Sodium 1,000 MG ONCE ONE 04/22 1800 DC 04/22 IV 04/22 1801 1830 Heparin Sodium 0 .STK-MED ONE 04/23 0643 DC (Porcine) .ROUTE Heparin Sodium 0 .STK-MED ONE 04/22 2210 DC (Porcine) .ROUTE Heparin Sodium 5,000 UNIT Q8 04/22 2200 AC 04/23 (Porcine) SC 0642 Hydromorphone HCl 0 .STK-MED ONE 04/22 1834 DC .ROUTE Hydromorphone HCl 1 MG ONCE ONE 04/22 1830 DC 04/22 IV 04/22 1831 1830 Hydromorphone HCl 0 .STK-MED ONE 04/22 1618 DC .ROUTE Hydromorphone HCl 1 MG ONCE ONE 04/22 1600 DC 04/22 IV 04/22 1601 1618 Lactated Ringer's 1,000 ML ONCE ONE 04/23 1045 AC 04/23 IV 04/23 1244 1036 Lactated Ringer's 1,000 ML ONCE ONE 04/23 0930 DC 04/23 IV 04/23 1129 0938 Lactated Ringer's 1,000 ML Q10H 04/23 0530 DC 04/23 IV 04/24 1329 0545 Lactated Ringer's 1,000 ML ONCE ONE 04/23 0130 DC 04/23 IV 04/23 0229 0129 Lactated Ringer's 1,000 ML ONCE ONE 04/23 0115 DC 04/23 IV 04/23 0314 0333 Lactated Ringer's 1,000 ML Q10H 04/22 2330 DC 04/23 IV 04/24 0529 0043 Levetiracetam 1,000 MG BID 04/22 2200 AC 04/23 PO 1025 Metronidazole 500 MG IQ8 04/23 0000 AC 04/23 N/A 1 UNIT IV 0817 Metronidazole 500 MG ONCE ONE 04/22 1800 DC 04/22 N/A 1 UNIT IV 04/22 1859 1830 Morphine Sulfate 2 MG Q4-6 PRN PRN 04/22 2130 AC 04/23 IV 1202 Oxycodone HCl 0 .STK-MED ONE 04/22 2210 DC PO Oxycodone HCl 5 MG Q6H 04/22 2130 AC 04/23 PO 0941 Potassium Chloride 20 MEQ ONCE ONE 04/23 0945 DC 04/23 IV 04/23 0946 0944 Potassium Chloride 10 MEQ ONCE ONE 04/23 0930 CAN IV 04/23 0931 Potassium Chloride 20 MEQ ONCE ONE 04/23 0415 DC 04/23 IV 04/23 0416 0445 Potassium Chloride 20 MEQ ONCE ONE 04/23 0415 DC 04/23 IV 04/23 0416 0538 Quetiapine Fumarate 100 MG QAM 04/23 1000 AC 04/23 PO 0941 Quetiapine Fumarate 500 MG AT BEDTIME 04/22 2345 AC 04/23 PO 0042 Sodium Chloride 1,000 ML Q13H 04/22 2100 DC 04/22 IV 04/23 2259 2254 Sodium Chloride 1,000 ML BOLUS ONE 04/22 2030 DC 04/22 IV 04/22 2129 2040 Sodium Chloride 1,000 ML BOLUS ONE 04/22 1730 DC 04/22 IV 04/22 1829 1819 Sodium Chloride 1,000 ML BOLUS ONE 04/22 1430 DC 04/22 IV 04/22 1529 1500 Sodium Chloride 1,000 ML BOLUS ONE 04/22 1315 DC 04/22 IV 04/22 1414 1424 Trimethobenzamide HCl 200 MG TID PRN 04/22 2130 AC IM Vancomycin HCl 125 MG Q6H 04/23 0900 AC 04/23 PO 0938 Vancomycin HCl 125 MG Q6 04/23 0145 DC 04/23 PO 0939 Last 24 Hrs of Lab/Silver Results Last 24 Hrs of Labs/Mics: Laboratory Tests 04/23/17 1037: Lactic Acid Pending 04/23/17 0732: Lactic Acid 2.3 H 04/23/17 0732: Anion Gap 10, Estimated GFR > 60, BUN/Creatinine Ratio 24.3 04/23/17 0259: Troponin I 0.01 04/23/17 0259: Lactic Acid 3.7 H 04/23/17 0259: Anion Gap 11, Estimated GFR > 60, BUN/Creatinine Ratio 28.6 H, CBC w Diff MAN DIFF ORDERED, RBC 3.83 L, MCV 98.7, MCH 32.6 H, RDW 12.6, MPV 8.4, Gran % 90.2 H, Lymphocytes % 7.8 L, Monocytes % 2.0, Eosinophils % 0, Basophils % 0, Absolute Granulocytes 9.0 H, Segmented Neutrophils 65, Band Neutrophils 25 H, Absolute Lymphocytes 0.8 L, Lymphocytes 9 L, Monocytes 1 L, Absolute Monocytes 0.2, Absolute Eosinophils 0, Absolute Basophils 0, Platelet Estimate ADEQUATE, Normocytic RBCs VERIFIED, Normochromic RBCs VERIFIED, PUBS MCHC 33.1 04/23/17 0025: Lactic Acid 6.8 H 04/23/17 0025: Calcium 9.5, Troponin I 0.02 04/22/17 2131: Methadone Screen Cancelled, Barbiturate Screen Cancelled, Ur Phencyclidine Scrn Cancelled, Amphetamines Screen Cancelled, U Benzodiazepines Scrn Cancelled, Urine Cocaine Screen Cancelled, Urine Cannabis Screen Cancelled 04/22/17 2048: Calcium Cancelled 04/22/17 1906: Urine Opiates Screen 1716.00, Methadone Screen 77, Barbiturate Screen < 60, Ur Phencyclidine Scrn 14.40, Amphetamines Screen < 100, U Benzodiazepines Scrn < 85 , Urine Cocaine Screen < 50, Urine Cannabis Screen 74.50 H, Urine Color ORANG H, Urine Clarity CLEAR, Urine pH 6.5, Ur Specific [place] >= 1.030, Urine Protein TRACE H, Urine Ketones TRACE H, Urine Nitrite NEG, Urine Bilirubin NEG @ICTO, Urine Urobilinogen 1.0, Ur Leukocyte Esterase NEG, Ur Microscopic SEDIMENT EXAMINED, Urine WBC 3-5 H, Ur Epithelial Cells FEW, Urine Bacteria MANY H, Hyaline Casts FEW H, Granular Casts FEW H, Urine Mucus FEW, Urine Hemoglobin NEG, Urine Glucose NEG 04/22/17 1630: Troponin I Cancelled 04/22/17 1541: Lactic Acid 4.9 H 04/22/17 1227: Anion Gap 19 H, Estimated GFR 57 L, BUN/Creatinine Ratio 21.0, Glucose 168 H, Lactic Acid 3.1 H, Calcium 11.2 H, Magnesium 2.3, Total Bilirubin 0.5, AST 36, ALT 32, Alkaline Phosphatase 177 H, Troponin I < 0.01, C-Reactive Prot, Quant < 0.5, Total Protein 7.7, Albumin 4.6, Globulin 3.1, Albumin/Globulin Ratio 1.5, Lipase 34, PTH Intact 18.6, D-Dimer High Sensitivty 526 H, CBC w Diff MAN DIFF ORDERED, RBC 4.85, MCV 98.3, MCH 32.3 H, RDW 12.6, MPV 8.4, Gran % 84.2 H, Lymphocytes % 10.7 L, Monocytes % 4.7, Eosinophils % 0.2, Basophils % 0.2, Absolute Granulocytes 14.3 H, Segmented Neutrophils 71, Band Neutrophils 7 H, Absolute Lymphocytes 1.8, Lymphocytes 17 L, Monocytes 5, Absolute Monocytes 0.8 H, Absolute Eosinophils 0, Absolute Basophils 0, Platelet Estimate VERIFIED BY SMEAR, Normocytic RBCs VERIFIED, Normochromic RBCs VERIFIED, PUBS MCHC 32.9 L Microbiology 04/23 699 UPPER RESP: Surveillance Culture - RECD 04/23 699 GI: Surveillance Culture - RECD 04/23 0213 NASOPHARYN: Influenza Virus A & B Rapid Smear - COMP 04/23 0055 BLOOD: Blood Culture - RECD 04/23 0040 BLOOD: Blood Culture - RECD 04/22 2125 URINE ROUT: Urine Culture - CAN Cancelled: Cancelled via OE: DONE ADD ON 04/22 190 URINE ROUT: Urine Culture - RES 04/22 1519 STOOL: Vibrio Culture - RES 04/22 1519 STOOL: Cryptosporidium Antigen - RECD 04/22 1519 STOOL: Giardia Antigen (SILVER) - RECD 04/22 1519 STOOL: Clostridium difficile Toxin A & B - RES 04/22 1519 STOOL: Stool Culture - RES Assessment/Plan Assessment: This is a 55 year old female with past medical history terrific and 4 multiple sclerosis, chronic back pain, L 3, 4 and 5 disc herniations status post spinal fusion surgery, mesothelioma status post right lung resection, seizure disorder, recent acute cholecystitis status post ERCP in Feb 2015, presented to hospital with excruciating acute generalized abdominal pain and shortness of breath. Problem list/plan: #Severe dehydration, diffuse colitis, frequent diarrhea: * CT scan on admission is positive for diffuse colitis, unclear if it is infectious. * Central line was placed in the ED. * Nothing by mouth except ice chips. * On IV lactated Ringer's at 500 mL * Presented with lactic acidosis to 6.9 now trending down. * Was started on ceftriaxone, metronidazole, on by mouth vancomycin on admission * Stool studies sent for Vibrio. giardia, stool for ova and para, C. difficile: Pending, shiga toxin negative #Abnormal EKG: * Nonspecific EKG changes. * Troponin negative 3. * Echocardiogram to rule out any regional wall motion abnormalities * Cardiology consult placed. #Hypercalcemia: * Most likely secondary to dehydration versus being on Bishnu's * Follow-up repeat calcium level and serum parathyroid hormone level. #Hypokalemia: * Status post potassium repletion, monitor closely and replete accordingly #Seizure disorder: * Continue on Keppra #Insomnia: * Continue on Seroquel #Diet * Nothing by mouth for now #DVT prophylaxis * Subcutaneous heparin #CODE STATUS * Full code Problem List: 1. Colitis 2. Dehydration Pain Ratin Pain Location: Abdomen Pain Goal: Pain 4 or less Pain Plan: IV Tylenol to 8 hours when necessary Tomorrow's Labs & Rationales: CBC to monitor leukocytosis and H&H BEP, calcium to monitor electrolytes. Bill Jensen 04/23/17 1017: Attending MD Review Statement Attending Statement Attending MD Statement: examined this patient, discuss w/resident/PA/PARTS INSPECTOR, agreed w/resident/PA/PARTS INSPECTOR, discussed with family, reviewed EMR data (avail), discussed with nursing, discussed with case mgmt, reviewed images, amended to note Attending Assessment/Plan: 57 o/f with severe dehydration and amny loose stools epsiodes admitted to telemetry and transferred to ICU overnight for close monitoring. Patient had severe lactic acidosis LA on arrival and admission. Patient is started on empiric abx for colitis including c diff by admitting team. Patient stool samples are sent. Patient seen/examined bedside. Patient c/o diffuse abdominal pain with frequent watery stools. CT with pancolitis. Plan to follow up with stool studies results and descalate antibitoics, f/u cultures. Leukocytosis improving with improvement in LA. C/w IVF, Monitor hemodynamcis , patient can be transferred out of ICU if further clinical improvement, continue with supporitve care..
[2017-04-23 16:39] VITALS: BP 110/74
[2017-04-23 23:00] VITALS: BP 110/60
[2017-04-24 06:01] LABS: ABSOLUTE BASOPHIL COUNT 0 /CUMM (0.0-0.2); ABSOLUTE EOSINOPHIL COUNT 0 /CUMM (0.0-0.7); ABSOLUTE GRANULOCYTE CT 8.3 /CUMM (1.4-6.5); ABSOLUTE LYMPH COUNT 1.8 /CUMM (1.2-3.4); ABSOLUTE MONOCYTE COUNT 0.7 /CUMM (0.10-0.60); BASOPHIL % 0.1 % (0.0-2.0); EOSINOPHIL % 0.5 % (0-5); GRANULOCYTE % 76.4 % (42.2-75.2); MEAN CORPUSCULAR HGB 33.1 PG (27.0-31.0); MEAN CORPUSCULAR HGB CONC 33.3 G/DL (33.0-37.0); MEAN CORPUSCULAR VOLUME 99.5 FL (81.0-99.0); MEAN PLATELET VOLUME 8.2 FL (7.4-10.4); PLATELET COUNT 194 /CUMM (130-400); RBC DISTRIBUTION WIDTH 13.1 % (11.5-14.5); RED BLOOD CELL CT 2.92 /CUMM (4.20-5.40); WHITE BLOOD CELL COUNT 10.9 /CUMM (4.8-10.8)
--- NOTE | 2017-04-24 07:34 | PN- Housestaff ---
Ingrid Rizzo 04/24/17 0733: Subjective Follow-up For: Colitis Severe dehydration Hypercalcemia- resolved Subjective: Patient reports she is mildy SOB but has been SOB since admission. Her O2 sats currently 100%. She denies palpitations, CP, leg swelling. Review of Systems Constitutional: Reports: see HPI. Objective Last 24 Hrs of Vital Signs/I&O Vital Signs Date Time Temp Pulse Resp B/P B/P Pulse O2 O2 Flow FiO2 Mean Ox Delivery Rate 04/24 799 Room Air 04/24 799 98.0 98 18 132/84 93 Room Air 04/24 0000 92 Room Air Room Air 04/23 2300 97.6 104 16 110/60 92 Room Air Room Air Intake & Output 04/24 1600 04/24 0804/24 0000 Intake Total 1650 821 838 Output Total 6106 132 0033 Balance -150 -29 -462 Intake, IV 1050 821 838 Intake, Oral 600 Number 0 0 Bowel Movements Output, Stool 0 Output, Urine 0490 513 6033 Patient 196 lb Weight Physical Exam General Appearance: Alert, Oriented X3, Cooperative, No Acute Distress HEENT: Atraumatic, PERRLA, EOMI Neck: Supple, No JVD, No thryomegaly Cardiovascular: Regular Rate, Normal S1, Normal S2 Lungs: Clear to Auscultation, Normal Air Movement Abdomen: Normal Bowel Sounds, Soft, No Tenderness Extremities: No Edema Current Medications: Current Medications Sig/Trace Start time Last Medication Dose Route Stop Time Status Admin Acetaminophen 1,000 MG Q8P PRN 04/23 0145 AC 04/23 N/A 1 UNIT IV 0308 Ceftriaxone Sodium 1,000 MG DAILY 04/23 1000 AC 04/24 IV 1001 Heparin Sodium 5,000 UNIT Q8 04/22 2200 AC 04/24 (Porcine) SC 1318 Lactated Ringer's 1,000 ML Q10H 04/23 1430 DC 04/24 IV 0501 Levetiracetam 1,000 MG BID 04/22 2200 AC 04/24 PO 1001 Magnesium Sulfate 1 GM Q2H 04/24 0715 DC 04/24 Dextrose/Water 100 ML IV 04/24 1114 1001 Magnesium Sulfate 1 GM ONCE ONE 04/23 1530 DC 04/23 Dextrose/Water 100 ML IV 04/23 1929 1651 Metronidazole 500 MG IQ8 04/23 0000 AC 04/24 N/A 1 UNIT IV 1631 Morphine Sulfate 2 MG Q4-6 PRN PRN 04/22 2130 AC 04/24 IV 1639 Oxycodone HCl 5 MG Q6H 04/22 2130 AC 04/24 PO 1514 Phosphate 250 MG PC AND AT BEDTIME 04/24 1300 AC 04/24 PO 04/24 1801 1318 Potassium Chloride 20 MEQ ONCE ONE 04/24 1215 DC 04/24 PO 04/24 1216 1317 Potassium Chloride 20 MEQ Q1H 04/24 0800 DC 04/24 IV 04/24 0901 0836 Potassium Chloride 10 MEQ Q1H 04/24 0715 DC IV 04/24 0816 Quetiapine Fumarate 100 MG QAM 04/23 1000 AC 04/23 PO 0941 Quetiapine Fumarate 500 MG AT BEDTIME 04/22 2345 AC 04/23 PO 2206 Trimethobenzamide HCl 200 MG TID PRN 04/22 2130 AC IM Last 24 Hrs of Lab/Silver Results Last 24 Hrs of Labs/Mics: Laboratory Tests 04/24/17 1027: Anion Gap 8, Estimated GFR > 60, Glucose 86, Calcium 8.0 L, Phosphorus 1.5 L, Magnesium 2.2, Total Bilirubin < 0.1 L, AST 21, ALT 29, Albumin 2.3 L 04/24/17 0507: Anion Gap 10, Estimated GFR > 60, Glucose 77, Calcium 8.1 L, Phosphorus 1.9 L, Magnesium 1.8, Total Bilirubin 0.1 L, AST 20, ALT 33, Albumin 2.2 L, CBC w Diff NO MAN DIFF REQ, RBC 2.92 L, MCV 99.5 H, MCH 33.1 H, RDW 13.1, MPV 8.2, Gran % 76.4 H, Lymphocytes % 16.2 L, Monocytes % 6.8, Eosinophils % 0.5, Basophils % 0.1, Absolute Granulocytes 8.3 H, Absolute Lymphocytes 1.8, Absolute Monocytes 0.7 H, Absolute Eosinophils 0, Absolute Basophils 0, PUBS MCHC 33.3 04/24/17 0143: Troponin I 0.01 04/23/174: Anion Gap 10, Estimated GFR > 60, Glucose 78, Calcium 8.1 L, Phosphorus 2.5, Magnesium 1.8, Total Bilirubin 0.2, AST 21, ALT 37, Albumin 2.4 L Assessment/Plan Assessment: Ms. Bangura is a 55 year old female with past medical history multiple sclerosis, chronic back pain, L 3, 4 and 5 disc herniations status post spinal fusion surgery, mesothelioma status post right lung resection, seizure disorder, recent acute cholecystitis status post ERCP in Feb 2015, presented to hospital with excruciating acute generalized abdominal pain and shortness of breath. Problem list/plan: #Severe dehydration, diffuse colitis, frequent diarrhea: CT scan on admission is positive for diffuse colitis, unclear if it is infectious. Central line was placed in the ED. Received vancomycin on admission. Stool studies sent for Vibrio. giardia, stool for ova and para, C. difficile, shiga toxin negative * Discontinue lactated Ringer's * Presented with lactic acidosis to 6.9, now nl * Continue ceftriaxone, metronidazole * C. difficle PCR pending * GI recommendations appreciated #Abnormal EKG: Nonspecific EKG changes. Troponin negative 3. Echocardiogram demonstrated EF of 60% with impaired LV relaxation * Cardiology recommendations appreciated #Hypercalcemia: - resolved Most likely secondary to dehydration * Monitor calcium level #Hypokalemia: * monitor closely and replete #Seizure disorder: * Continue on Keppra #Insomnia: * Continue on Seroquel #Diet * Liquid, advance as tolerated #DVT prophylaxis * Subcutaneous heparin #CODE STATUS * Full code Problem List: 1. Colitis 2. Acute electrocardiogram changes 3. Dehydration Pain Ratin Pain Location: NA Pain Goal: Remain pain free Pain Plan: Morphine, Oxycodone Tomorrow's Labs & Rationales: CBC, Bundle Bill Jensen 04/24/17 1157: Attending MD Review Statement Attending Statement Attending MD Statement: examined this patient, discuss w/resident/PA/GLASS EMBOSSER, agreed w/resident/PA/GLASS EMBOSSER, discussed with family, reviewed EMR data (avail), discussed with nursing, discussed with case mgmt, reviewed images, amended to note Attending Assessment/Plan: 57 o/f with severe dehydration and amny loose stools epsiodes admitted to telemetry and transferred to ICU overnight for close monitoring. Patient had severe lactic acidosis LA on arrival and admission. Patient is started on empiric abx. Patient seen/examined bedside. Patient feeling much better and hungry. Advacne to regular diet today. CT with pancolitis. Stool studies negative so far. Plan to descalate antibitoics, f/u cultures. Leukocytosis improving with improvement in LA. C/w IVF, Adavcne diet as tolerated, Consider GI i/p vs o/p for colonoscopy in future. Monitor hemodynamcis , patient can be transferred out of ICU to general inpatient medical services, continue with supporitve care..
[2017-04-24 08:00] VITALS: BP 132/84
--- NOTE | 2017-04-24 08:02 | ECHOCARDIOGRAM REPORT ---
VEL GARY Age: 57 : 1960 Gender: F Exam Date: 04/23/2017 08:17 Exam Location: [facility] Ht (in): 69 Wt (lb): 160 BSA: 1.88 BP: 104 / 64 Ordering Physician: Hoda Leon MD Referring Physician: Faheem Johnston MD, PhD Technologist: Kyleigh Buck [facility] Room Number: 104 Indications: MYOCARDIAL ISCHEMIA/ME Rhythm: Sinus Technical Quality: good FINDINGS Left Ventricle Normal left ventricular size, wall thickness and systolic function with no obvious regional wall motion abnormalities. Diastolic filling pattern is consistent with impaired LV relaxation. The ejection fraction is visually estimated at 60%. Right Ventricle The right ventricle is normal in size and function. Right Atrium The right atrium is normal in size. Left Atrium The left atrium is normal in size. The interatrial septum is intact. Mitral Valve The mitral valve demonstrates mild annular calcification with normal function. There is no mitral regurgitation. Aortic Valve Structurally normal aortic valve without significant sclerosis or stenosis. There is no aortic regurgitation. Tricuspid Valve The tricuspid valve is normal in structure and function. There is trace tricuspid regurgitation. Pulmonary artery systolic pressure is normal. Pulmonic Valve Structurally normal pulmonic valve. There is no pulmonic regurgitation. Pericardium Normal pericardium without effusion. No pleural effusion. Great Vessels Normal aortic root dimension. The aortic arch and great vessels are well seen and are normal. CONCLUSIONS 1. Normal EF of 60% with impaired LV relaxation. 2. Trace tricuspid regurgitation. Faheem Johnston M.D. (Electronically Signed) Final Date: 24 April 2017 08:01 MEASUREMENTS (Male / Female) Normal Values 2D ECHO LV Diastolic Diameter PLAX 3.8 cm 4.2 - 5.9 / 3.9 - 5.3 cm LV Systolic Diameter PLAX 2.3 cm 2.1 - 4.0 cm LV Fractional Shortening PLAX 39.5 % 25 - 46 % LV Ejection Fraction 2D Teich 70.8 % IVS Diastolic Thickness 0.9 cm LVPW Diastolic Thickness 0.9 cm LV Relative Wall Thickness 0.5 RV Internal Dim ED PLAX 2.1 cm 1.9 - 3.8 cm LVOT Diameter 1.8 cm Aortic Root Diameter 3.1 cm LA Systolic Diameter LX 3.3 cm 3.0 - 4.0 / 2.7 - 3.8 cm LA Volume 39.0 cm 18 - 58 / 22 - 52 cm DOPPLER AV Peak Velocity 178.0 cm/s AV Peak Gradient 12.7 mmHg AV Mean Velocity 123.0 cm/s AV Mean Gradient 7.0 mmHg AV Velocity Time Integral 30.3 cm LVOT Peak Velocity 122.0 cm/s LVOT Peak Gradient 6.0 mmHg LVOT Mean Velocity 83.0 cm/s LVOT Mean Gradient 3.0 mmHg LVOT Velocity Time Integral 21.0 cm LVOT Stroke Volume 53.4 cm AV Area Cont Eq vti 1.8 cm AV Area Cont Eq pk 1.7 cm MV Peak Velocity 107.0 cm/s MV Peak Gradient 4.6 mmHg MV Mean Velocity 62.9 cm/s MV Mean Gradient 2.0 mmHg Mitral E Point Velocity 70.6 cm/s Mitral A Point Velocity 89.3 cm/s Mitral E to A Ratio 0.8 MV PHT Velocity 86.3 cm/s MV Deceleration [place] 308.0 cm/s MV Pressure Half Time 84.1 ms MV Area PHT 2.6 cm MV Deceleration Time 235.0 ms TR Peak Velocity 129.0 cm/s TR Peak Gradient 6.7 mmHg Right Atrial Pressure 5.0 mmHg Pulmonary Artery Systolic Pressu 11.7 mmHg Right Ventricular Systolic Press 11.7 mmHg PV Peak Velocity 116.0 cm/s PV Peak Gradient 5.4 mmHg PV Mean Velocity 82.3 cm/s PV Mean Gradient 3.0 mmHg PV Velocity Time Integral 19.2 cm LV E' Lateral Velocity 11.5 cm/s Mitral E to LV E' Lateral Ratio 6.1 LV E' Septal Velocity 7.5 cm/s Mitral E to LV E' Septal Ratio 9.5
[2017-04-24 16:00] VITALS: BP 132/76
--- NOTE | 2017-04-24 16:33 | Cons- Cardiology ---
General Information and HPI Consulting Request Date of Consult: 04/24/17 Requested By: Bill Jensen MD History of Present Illness: Eri is a 57-year-old female with history of mesothelioma in 2006 status post right-sided lobectomy, COPD and multiple sclerosis. She also carries a history of chronic discomfort over her right lower ribs. Eri presented to the ER for evaluation of severe epigastric abdominal discomfort subsequently attributed to colitis. Her discomfort began three days prior to admission and was a cramping sensation associated with loose stools, vomiting and abdominal tenderness. She has lightheadedness and chills. Over the past four months this patient has noted a left sided chest discomfort that is different from her usual chest discomfort. She has not noted any consistent exertional component to this discomfort. The patient does admit to decreased exercise tolerance with shortness of breath and she also notes occasional palpitations. Allergies/Medications Allergies: Coded Allergies: No Known Allergies (10/17/16) Home Med List: Calcium Carbonate (TUMS) 200 MG CALCIUM (500 MG) TAB.CHEW 2 TAB PO Q4 GERD ( Reported) Hydrochlorothiazide 50 MG TABLET 1 TAB PO QAM DIURETIC (Reported) Levetiracetam 1,000 MG TABLET 1 TAB PO BID SEIZURES (Reported) Quetiapine Fumarate 100 MG TABLET 1 TAB PO QAM sleep (Reported) Quetiapine Fumarate 100 MG TABLET 5 TAB PO QHS SLEEP (Reported) Review of Systems Review of Systems: A review of symptoms is unremarkable. 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 Surgical History Surgical History: hysterectomy, spinal fusion, LAMINECTOMY MASECTOMY RIGHT LUNG REMOVED 12 RIBS REMOVED R lobectomy, rib resection right lobectomy Family History Relations & Conditions If Any: FATHER (myocardial infarction). MOTHER (lewy body dementia). Family History Reviewed? Father: [place] at age 49 Mother: dementia with Lewy body disease Psychosocial History Where Do You Live? Home Who Do You Live With? spouse Services at Home: None Smoking Status: Never Smoked ETOH Use: denies use Illicit Drug Use: denies illicit drug use Functional Ability ADLs Independent: dressing, eating, toileting, bathing. Ambulation: independent (right hip pain), cane IADLs Independent: shopping, housework, finances, food prep, telephone, transportation , medication admin. Exam & Diagnostic Data Vital Signs and I&O Vital Signs Date Time Temp Pulse Resp B/P B/P Pulse O2 O2 Flow FiO2 Mean Ox Delivery Rate 04/24 799 Room Air 04/24 799 98.0 98 18 132/84 93 Room Air 04/24 0000 92 Room Air Room Air 04/23 2300 97.6 104 16 110/60 92 Room Air Room Air 04/23 1639 99.4 100 20 110/74 98 Room Air Intake & Output 04/24 1600 04/24 0000 04/23 1600 04/23 0000 Intake Total 648 299 2831 2300 2000 Output Total 850 1300 1025 150 Balance -29 -462 2095 2300 1850 Intake, IV 988 978 9127 2300 2000 Intake, Oral 120 Number 0 0 2 1 2 Bowel Movements Output, Stool 125 Output, Urine 850 1300 900 150 Patient 196 lb 196 lb Weight Weight Bed scale Measurement Method Physical Exam: General: WD/WN female in NAD; alert and oriented x 3 HEENT: NC/AT, PERRL, EOMI Neck: no JVD, no carotid bruit Heart: RRR with 2/6 systolic murmur Lungs: clear bilaterally Abdomen: soft, diffusely tender, +ve bowel sounds Extremities: no edema Assessment/Plan Assessment/Plan * This patient does have risk factors for coronary artery disease, in particular , a family history of premature CAD in her father. She also has chest discomfort and palpitations that appear to be related to PVC's. Nevertheless, some of the feature of her chest discomfort are atypical. I would like to risk stratify her with a treadmill nuclear stress test when her current illness has improved. This will be scheduled as an outpatient. No additional cardiac medications for now. Consult Acknowledgment - Thank you for your consult request.
--- NOTE | 2017-04-24 23:15 | Cons- Gastroenterology ---
General Information and HPI Consulting Request Date of Consult: 04/24/17 Requested By: Mikey ALLEN,Bill Reason for Consult: I was called earlier today by the hospitalist service to assess colitis, HD #3. Source of Information: patient, old records Exam Limitations: fair historian History of Present Illness: 57 y/o female, with majority of tx in [place] area, past history of multiple sclerosis, chronic back pain on chronic rx narcotics (previously opioid dependent, claims to be off these since 2016), L3-L5 herniated disc post spinal fusion, mesothelioma post right lower rib & right upper lobectomy 2005 followed by CTX, seizures, remote CLARENCE (fibroids- ovaries intact), chronic anemia-> transfx, mild hyperCa2+, ? hx PUD, ex-20 pk yr cigarette smoker D/C 2006, without EtOH or illicit street drugs (although 04/22/17: Utox: + cannabis). 03/14/14: EGD to D3 with bxs by myself- J-shaped stomach with residual food, possible gastroparesis, patent pylorus, diffuse esophagitis with minimally irregular Z line at 35 cm, esophageal biopsies with fibrinopurulent exudate and ulcerative esophagitis, negative viral, negative fungal, negative Desai's with possible pill esophagitis, random biopsies D2/D3 negative for celiac disease, with normal villi 03/13/2014: elevated haptoglobin 335 03/14/2014: normal IgA 108, tTG and DGP Abs- both negative. 01/27/15: ERCP per Dr. Dinorah Ochoa- mildly dilated CBD 8-10 mm, no choledocholithiasis, patent cystic duct (consideration for EUS and/or Sphincter of Oddi manometry, as hx recurrent pancreatitis). *The patient subsequently had EUS at [facility] by Dr. Delgado- normal gallbladder/ bile duct/pancreas, and ulcerative esophagitis. *A repeat EGD and eventual colonoscopy were advised, but the patient was not compliant with these.*She has never had a colonoscopy, despite being urged to do so in the past. The patient presented to the [facility] 04/22/17 at 11:06 a.m., complaining of abdominal pain "10 out of 10" & SOB starting the p.m. before. She then had nausea & non-bloody, bilious vomiting, and watery diarrhea the morning of . The patient's abdominal pain was crampy and nonradiating in nature, mostly in the epigastric region, then becoming more diffuse. The stools became more watery, up to 6 times a day, & were independent of eating. There were questionable chills. She denied any fevers. The patient and her denied any sick contacts, recent travel, raw food ingestion, NSAIDS, or recent antibiotics [employer]. Upon arrival to the [facility], BP 120/87, P 94, R 20, T 97, O2 sat RA 100%. The patient later spiked to 101.1 in the ER. She was treated with IV Dilaudid, Zofran, IV NS, Tylenol, IV Flagyl & Ceftriaxone in the ER. Her BP then dropped to the 90's systolic. Some of this could have been from the narcotics. A right femoral line was placed in the ER. She had positive lactate & was initially admitted to the ICU with leukocytosis. She has since been downgraded to telemetry. She had stable GERD, without any odynophagia or dysphagia. She denied any early satiety, hematemesis, melena, constipation, obstipation, tenesmus, or rectal bleeding. She claimed stools were OB negative on admission on digital rectal exam. She was seen by cardiology for atypical CP & occasional palpitations & is to have an outpt cardiac nuclear stress test. She denied any SOB. The patient was started on clears po & is tolerating this. She claimed her diarrhea was improving. Her abdominal cramps were slightly better. She denied any rashes or acute arthralgias. She denied any family history of GI CA, IBD, additional GI disease, or inherited liver disease. Her appetite was fair. She had no symptoms of UTI or URI. *She was hemoconcentrated on admission. 04/14/14: HAVM, Hep Bs Ag, Hep B core Ab, Hep C Ab- all negative. 04/22/17: Admission labs- WBC 17 (71S/7B/17L/5M), H/H 15.7/47.7, MCV 98.3, RDW 12.6, PLT 319, glu 168, BUN/Cr 21/1.0, GFR 57, Na 141, K 3.5, HCO3 22, AG 19, * lactate 3.1-> 4.9, lipase 34, Mg 2.3, Ca 11.2, albumin 4.6, glob 3.1, TBil 0.5, alk phos 177, AST 36, ALT 32, troponin < 0.01, *CRP < 0.5; U/A- clear orange, > 1.030, 6.5, 3-5 WBC, few hyaline & granular casts, many bacteria, tr ketone, tr protein; neg nitrite, neg esterase. 04/22/17: Utox: + cannabis 74.50 04/22/17: UC- negative. 04/22/17: Stool C&S, Shiga toxin, Giardia Ag, Crypto Ag, Vibrio, & C. difficile- all negative. 04/22/17: *C. diff PCR- pending, *Norovirus RNA- pending. 04/23/17: BC x 2- negative. 04/23/17: Nasopharyngeal swab- negative influenza A & B. 04/23/17: lactate 6.8- >3.7-> 2.3-> 2.1-> 1.6. 04/23/17: WBC 9.9 (65S/25B/9L/1M, H/H 12.5/37.8, MCV 98.7, RDW 12.6, PLT 249, glu 78, BUN/Cr 13/0.8, GFR > 60, Na 140, K 3.6, HCO3 24, AG 10, Ca 8.1, PO4 2.5, albumin 2.4, TBil 0.2, AST 21, ALT 37. 04/24/17: WBC 10.9, H/H 9.7/29, MCV 99.5, RDW 13.1, PLT 194, glu 77, BUN/Cr 12/ 0.8, GFR > 60, Na 144, K 3.2, HCO3 26, AG 10, Mg 1.8, Ca 8.1, PO4 1.9, albumin 2.2, TBil 0.1, AST 20, ALT 33. 04/24/17: glucose 86, BUN/Cr 11/0.8, GFR > 60, Na 142, K 3.7, HCO3 26, AG 8, Mg 2.2, Ca 8.0, PO4 1.5, albumin 2.3, TBil < 0.1, AST 21, ALT 29. 04/22/17: XRY-PORTABLE CHEST XRAY- Stable right lung postsurgical change. Small lung volumes. No definite acute parenchymal disease. 04/22/17: US TRIPLEX OF LOWER EXTREMITIES, BILATERAL- Normal triplex scan without evidence of deep venous thrombosis involving the lower extremities. 04/22/17: CT ABDOMEN AND PELVIS WITHOUT IV or PO CONTRAST- Findings are suspicious for mild diffuse colitis, primarily affecting the transverse and descending and sigmoid colon. No evidence of bowel obstruction or bowel perforation. Fat stranding surrounding the descending and sigmoid colon. No pneumatosis coli. No free air. No bowel obstruction. Normal AP. Normal TI. Rectus diastasis without hernia. Moderate ASHD of aorta. No AAA. Flattening of IVC, suggesting dehydration. Diffuse osteopenia. DJD. 04/24/17: EKG- NSR @ 98, normal axis, normal intervals, NSST. Allergies/Medications Allergies: Coded Allergies: No Known Allergies (10/17/16) Home Med List: Calcium Carbonate (TUMS) 200 MG CALCIUM (500 MG) TAB.CHEW 2 TAB PO Q4 GERD ( Reported) Hydrochlorothiazide 50 MG TABLET 1 TAB PO QAM DIURETIC (Reported) Levetiracetam 1,000 MG TABLET 1 TAB PO BID SEIZURES (Reported) Quetiapine Fumarate 100 MG TABLET 1 TAB PO QAM sleep (Reported) Quetiapine Fumarate 100 MG TABLET 5 TAB PO QHS SLEEP (Reported) Current Medications: Current Medications Sig/Trace Start time Last Medication Dose Route Stop Time Status Admin Acetaminophen 1,000 MG Q8P PRN 04/23 0145 AC 04/23 N/A 1 UNIT IV 0308 Ceftriaxone Sodium 1,000 MG DAILY 04/23 1000 AC 04/24 IV 1001 Heparin Sodium 5,000 UNIT Q8 04/22 2200 AC 04/24 (Porcine) SC 2235 Hydromorphone HCl 0.4 MG ONCE ONE 04/24 1800 DC 04/24 IV 04/24 1801 1829 Lactated Ringer's 1,000 ML Q10H 04/23 1430 DC 04/24 IV 0501 Levetiracetam 1,000 MG BID 04/22 2200 AC 04/24 PO 2243 Magnesium Sulfate 1 GM Q2H 04/24 0715 DC 04/24 Dextrose/Water 100 ML IV 04/24 1114 1001 Metronidazole 500 MG IQ8 04/23 0000 AC 04/25 N/A 1 UNIT IV 0012 Morphine Sulfate 2 MG Q4-6 PRN PRN 04/22 2130 AC 04/24 IV 2120 Oxycodone HCl 5 MG Q6H 04/22 2130 AC 04/24 PO 2236 Phosphate 250 MG PC AND AT BEDTIME 04/24 1300 DC 04/24 PO 04/24 1801 1959 Potassium Chloride 20 MEQ ONCE ONE 04/24 1215 DC 04/24 PO 04/24 1216 1317 Potassium Chloride 20 MEQ Q1H 04/24 0800 DC 04/24 IV 04/24 0901 0836 Potassium Chloride 10 MEQ Q1H 04/24 0715 DC IV 04/24 0816 Quetiapine Fumarate 100 MG QAM 04/23 1000 AC 04/23 PO 0941 Quetiapine Fumarate 500 MG AT BEDTIME 04/22 2345 AC 04/24 PO 2239 Simethicone 80 MG ONCE ONE 04/24 1800 DC 04/24 PO 04/24 1801 1958 Trimethobenzamide HCl 200 MG TID PRN 04/22 213 AC IM Past History Travel History Traveled to [place] past 21 day No Medical History Blood Transfusion Hx: Yes Neurological: multiple sclerosis, seizure EENT: NONE Cardiovascular: hypertension Respiratory: COPD, pneumonia, Mesothelioma S/P right lobectomy Gastrointestinal: GERD, pancreatitis, S/P ERCP; no choledocholithiasis Hepatic: NONE Renal: NONE Musculoskeletal: chronic back pain, disk herniation (L 3, 4, 5), osteoarthritis, SPINAL FUSION Psychiatric: opioid dependence Endocrine: NONE Blood Disorders: anemia (mild) Cancer(s): 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 Surgical History Surgical History: hysterectomy (fibroids), spinal fusion, LAMINECTOMY Benign breast bx RUL lobectomy 12 RIBS REMOVED R lobectomy, rib resection right lobectomy Family History Relations & Conditions If Any: FATHER (myocardial infarction). MOTHER (lewy body dementia). , Age 72. FATHER, , Age 49; Cause: ASHD (arteriosclerotic heart disease). Psychosocial History Where Do You Live? Home Who Do You Live With? spouse Services at Home: None Primary Language: Eritrean Smoking Status: Former Smoker ETOH Use: denies use Illicit Drug Use: denies illicit drug use (prev on rx narcs) Living Will? no Power of Violin Teacher/HCP? no Other Social History: . 2 dtrs- [employer]. Ex 20 pk yr cigarette smoker, D/C 2006. No EtOH. Denies street drugs. Previously on rx narcs. 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 Functional Ability ADLs Independent: dressing, eating, toileting, bathing. Ambulation: independent (right hip pain), cane IADLs Independent: shopping, housework, finances, food prep, telephone, transportation , medication admin. 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 Review of Systems Constitutional: Denies: chills, diaphoresis, fever, malaise, weakness, unexplained weight loss. EENTM: Denies: blurred vision, double vision, visual changes, eye pain, eye drainage, eye tearing, icterus, ear discharge, ear pain, ear redness, hearing changes, nasal congestion, epistaxis, nasal pain, throat pain, throat swelling, mouth pain, tooth pain. Cardiovascular: Reports: chest pain (atypical). Denies: edema, orthopena, palpitations, peripheral edema, syncope. Respiratory: Denies: cough, hemoptysis, orthopnea, short of breath, sputum production, stridor, wheezing. GI: Reports: abdominal pain (cramps improving), diarrhea (better), nausea (resolved) , vomiting (resolved). Denies: bloating, constipation, distention, bowel incontinence, melena, bloody stool, changes in stool, steatorrhea. Genitourinary: Denies: discharge, dysuria, frequency, hematuria, hesitation, nocturia, pain, urgency. Musculoskeletal: Reports: back pain (chronic). Denies: gout, joint pain, joint swelling, muscle pain, muscle stiffness, neck pain. Skin: Denies: cysts, change in skin color, change in hair/nails, dryness, erythema, jaundice, lesions, lymphangitis, lumps, moles, rash. Neurological/Psychological: Reports: anxiety, emotional problems. Denies: ataxia, cognitive dysfunction, confusion, depressed, dementia, headache, numbness, paresthesia, pre-existing deficit, petit mal seizures, tingling, tremors, tonic-clonic seizures, unable to move lower ext, unable to move upper ext, weakness. Hematologic/Endocrine: Denies: bruising, bleeding, polyuria, polydipsia. Immunologic/Allergic: Denies: splenectomy, HIV/AIDS, lymphadenopathy. All Other Systems: Reviewed and Negative Exam & Diagnostic Data Vital Signs and I&O Vital Signs Date Time Temp Pulse Resp B/P B/P Pulse O2 O2 Flow FiO2 Mean Ox Delivery Rate 04/24 1599 97 Room Air 04/24 1599 98.2 86 16 132/76 97 Room Air 04/24 0700 Room Air 04/24 799 98.0 98 18 132/84 93 Room Air Intake & Output 04/25 0400 04/24 1600 04/24 0400 04/23 1600 04/23 1600 Intake Total 790 2471 838 4220 3200 2000 Output Total 1800 2650 1300 1025 150 Balance -1010 -179 -462 3195 3050 2000 Intake, IV 100 6291 516 3470 3200 2000 Intake, Oral 690 600 120 Number 0 0 3 2 4 Bowel Movements Output, Stool 0 125 Output, Urine 1800 2650 1300 900 150 Patient 196 lb 196 lb 160 lb Weight Weight Bed scale Reported by Patient Measurement Method Physical Exam: Well-developed, slightly malnourished female, in no apparent distress. Non-toxic appearing. Sclera anicteric. Conjunctiva pink. Oropharynx clear. No oral thrush. No aphthous ulcers. Slightly dry mucus membranes. There is no adenopathy , thyromegaly, or JVD. No peripheral stigmata of inflammatory bowel disease or chronic liver disease on exam. No spiders on the anterior chest wall. No CVA tenderness. Lungs: clear to A&P. No wheezing, rales, or rhonchi. Slight decreased BS on right. Heart exam: regular rate rhythm, S1 and S2, without any murmur. Abdominal exam: normal bowel sounds, soft belly, mild epigastric & LUQ tenderness on deep palpation, without guarding or rebound. Rectus diastasis without palpable hernia, otherwise no mass. No organomegaly. No fluid shift. No pulsatile mass. No epigastric bruit. Clinically, without megacolon. Repeat digital rectal exam: deferred by patient (reportedly OB-neg on admission, API). Extremities: without C, C, or E. No palpable cords. Mild DJD. No rash. No palmar erythema. No Dupuytren's contractures. Distal pulses 2+ bilaterally. DTRs 2+ bilaterally. Alert and oriented x 3. No tremor. No asterixis. Motor 5/5 B/L. A detailed neuro exam for MS was deferred. Results Pertinent Lab Results: Laboratory Tests 04/24 04/24 04/24 1027 0507 0143 Chemistry Sodium (137 - 145 mmol/L) 142 144 Potassium (3.5 - 5.1 mmol/L) 3.7 3.2 L Chloride (98 - 107 mmol/L) 109 H 108 H Carbon Dioxide (22 - 30 mmol/L) 26 26 Anion Gap (5 - 16) 8 10 BUN (7 - 17 mg/dL) 11 12 Creatinine (0.5 - 1.0 mg/dL) 0.8 0.8 Estimated GFR (>60 ml/min) > 60 > 60 Glucose (65 - 99 mg/dL) 86 77 Calcium (8.4 - 10.2 mg/dL) 8.0 L 8.1 L Phosphorus (2.5 - 4.5 mg/dL) 1.5 L 1.9 L Magnesium (1.6 - 2.3 mg/dL) 2.2 1.8 Total Bilirubin (0.2 - 1.3 mg/dL) < 0.1 L 0.1 L AST (14 - 36 U/L) 21 20 ALT (9 - 52 U/L) 29 33 Troponin I (< 0.11 ng/ml) 0.01 Albumin (3.5 - 5.0 g/dL) 2.3 L 2.2 L Hematology CBC w Diff NO MAN DIFF REQ WBC (4.8 - 10.8 /CUMM) 10.9 H RBC (4.20 - 5.40 /CUMM) 2.92 L Hgb (12.0 - 16.0 G/DL) 9.7 L Hct (37 - 47 %) 29.0 L MCV (81.0 - 99.0 FL) 99.5 H MCH (27.0 - 31.0 PG) 33.1 H RDW (11.5 - 14.5 %) 13.1 Plt Count (130 - 400 /CUMM) 194 MPV (7.4 - 10.4 FL) 8.2 Gran % (42.2 - 75.2 %) 76.4 H Lymphocytes % (20.5 - 51.1 %) 16.2 L Monocytes % (1.7 - 9.3 %) 6.8 Eosinophils % (0 - 5 %) 0.5 Basophils % (0.0 - 2.0 %) 0.1 Absolute Granulocytes (1.4 - 6.5 /CUMM) 8.3 H Absolute Lymphocytes (1.2 - 3.4 /CUMM) 1.8 Absolute Monocytes (0.10 - 0.60 /CUMM) 0.7 H Absolute Eosinophils (0.0 - 0.7 /CUMM) 0 Absolute Basophils (0.0 - 0.2 /CUMM) 0 PUBS MCHC (33.0 - 37.0 G/DL) 33.3 04/23 04/23 04/23 04/23 04/23 2054 1509 1425 1224 1037 Chemistry Sodium (137 - 145 mmol/L) 140 139 Potassium (3.5 - 5.1 mmol/L) 3.6 3.3 L Chloride (98 - 107 mmol/L) 106 106 Carbon Dioxide (22 - 30 mmol/L) 24 24 Anion Gap (5 - 16) 10 9 BUN (7 - 17 mg/dL) 13 16 Creatinine (0.5 - 1.0 mg/dL) 0.8 0.7 Estimated GFR (>60 ml/min) > 60 > 60 BUN/Creatinine Ratio (7 - 25 %) 22.9 Glucose (65 - 99 mg/dL) 78 Lactic Acid (0.7 - 2.1 mmol/L) Cancelled 1.6 Cancelled 2.1 Calcium (8.4 - 10.2 mg/dL) 8.1 L Phosphorus (2.5 - 4.5 mg/dL) 2.5 Magnesium (1.6 - 2.3 mg/dL) 1.8 1.5 L Total Bilirubin (0.2 - 1.3 mg/dL) 0.2 AST (14 - 36 U/L) 21 ALT (9 - 52 U/L) 37 Albumin (3.5 - 5.0 g/dL) 2.4 L 04/23 04/23 04/23 04/23 0732 6232 0259 0259 Chemistry Sodium (137 - 145 mmol/L) 134 L Potassium (3.5 - 5.1 mmol/L) 3.5 Chloride (98 - 107 mmol/L) 102 Carbon Dioxide (22 - 30 mmol/L) 22 Anion Gap (5 - 16) 10 BUN (7 - 17 mg/dL) 17 Creatinine (0.5 - 1.0 mg/dL) 0.7 Estimated GFR (>60 ml/min) > 60 BUN/Creatinine Ratio (7 - 25 %) 24.3 Lactic Acid (0.7 - 2.1 mmol/L) 2.3 H 3.7 H Troponin I (< 0.11 ng/ml) 0.01 04/23 04/23 04/23 0259 0025 0025 Chemistry Sodium (137 - 145 mmol/L) 135 L Potassium (3.5 - 5.1 mmol/L) 3.0 L Chloride (98 - 107 mmol/L) 103 Carbon Dioxide (22 - 30 mmol/L) 20 L Anion Gap (5 - 16) 11 BUN (7 - 17 mg/dL) 20 H Creatinine (0.5 - 1.0 mg/dL) 0.7 Estimated GFR (>60 ml/min) > 60 BUN/Creatinine Ratio (7 - 25 %) 28.6 H Lactic Acid (0.7 - 2.1 mmol/L) 6.8 H Calcium (8.4 - 10.2 mg/dL) 9.5 Troponin I (< 0.11 ng/ml) 0.02 Hematology CBC w Diff MAN DIFF ORDERED WBC (4.8 - 10.8 /CUMM) 9.9 RBC (4.20 - 5.40 /CUMM) 3.83 L Hgb (12.0 - 16.0 G/DL) 12.5 Hct (37 - 47 %) 37.8 MCV (81.0 - 99.0 FL) 98.7 MCH (27.0 - 31.0 PG) 32.6 H RDW (11.5 - 14.5 %) 12.6 Plt Count (130 - 400 /CUMM) 249 MPV (7.4 - 10.4 FL) 8.4 Gran % (42.2 - 75.2 %) 90.2 H Lymphocytes % (20.5 - 51.1 %) 7.8 L Monocytes % (1.7 - 9.3 %) 2.0 Eosinophils % (0 - 5 %) 0 Basophils % (0.0 - 2.0 %) 0 Absolute Granulocytes (1.4 - 6.5 /CUMM) 9.0 H Segmented Neutrophils (42.2 - 75.2 %) 65 Band Neutrophils (0.0 - 5.0 %) 25 H Absolute Lymphocytes (1.2 - 3.4 /CUMM) 0.8 L Lymphocytes (20.5 - 51.1 %) 9 L Monocytes (1.7 - 9.3 %) 1 L Absolute Monocytes (0.10 - 0.60 /CUMM) 0.2 Absolute Eosinophils (0.0 - 0.7 /CUMM) 0 Absolute Basophils (0.0 - 0.2 /CUMM) 0 Platelet Estimate (ADEQUATE) ADEQUATE Normocytic RBCs VERIFIED Normochromic RBCs VERIFIED PUBS MCHC (33.0 - 37.0 G/DL) 33.1 04/22 04/22 2131 2048 Chemistry Calcium Cancelled Toxicology Methadone Screen Cancelled Barbiturate Screen Cancelled Ur Phencyclidine Scrn Cancelled Amphetamines Screen Cancelled U Benzodiazepines Scrn Cancelled Urine Cocaine Screen Cancelled Urine Cannabis Screen Cancelled 04/22 04/22 04/22 1906 1630 1541 Chemistry Lactic Acid (0.7 - 2.1 mmol/L) 4.9 H Troponin I Cancelled Toxicology Urine Opiates Screen (>2000 NG/ML) 1716.00 Methadone Screen (>300 NG/ML) 77 Barbiturate Screen (>200 NG/ML) < 60 Ur Phencyclidine Scrn (>25 NG/ML) 14.40 Amphetamines Screen (>1000 NG/ML) < 100 U Benzodiazepines Scrn (>200 NG/ML) < 85 Urine Cocaine Screen (>300 NG/ML) < 50 Urine Cannabis Screen (>50 NG/ML) 74.50 H Urines Urine Color (YEL,AMB,STR) ORANG H Urine Clarity (CLEAR) CLEAR Urine pH (5.0 - 8.0) 6.5 Ur Specific [place] (1.001 - 1.035) >= 1.030 Urine Protein (NEG,<30 MG/DL) TRACE H Urine Ketones (NEG) TRACE H Urine Nitrite (NEG) NEG Urine Bilirubin (NEG) NEG@ICTO Urine Urobilinogen (0.1 - 1.0 EU/dl) 1.0 Ur Leukocyte Esterase (NEG) NEG Ur Microscopic SEDIMENT EXAMINED Urine WBC (0 - 2 /HPF) 3-5 H Ur Epithelial Cells (NONE,FEW) FEW Urine Bacteria (NEG/NONE) MANY H Hyaline Casts (0/LPF) FEW H Granular Casts (NONE /LPF) FEW H Urine Mucus (FEW,NONE) FEW Urine Hemoglobin (NEG) NEG Urine Glucose (N MG/DL) NEG 04/22 04/22 04/22 1519 1419 1227 Chemistry Sodium (137 - 145 mmol/L) 141 Potassium (3.5 - 5.1 mmol/L) 3.5 Chloride (98 - 107 mmol/L) 101 Carbon Dioxide (22 - 30 mmol/L) 22 Anion Gap (5 - 16) 19 H BUN (7 - 17 mg/dL) 21 H Creatinine (0.5 - 1.0 mg/dL) 1.0 Estimated GFR (>60 ml/min) 57 L BUN/Creatinine Ratio (7 - 25 %) 21.0 Glucose (65 - 99 mg/dL) 168 H Lactic Acid (0.7 - 2.1 mmol/L) 3.1 H Calcium (8.4 - 10.2 mg/dL) 11.2 H Magnesium (1.6 - 2.3 mg/dL) 2.3 Total Bilirubin (0.2 - 1.3 mg/dL) 0.5 AST (14 - 36 U/L) 36 ALT (9 - 52 U/L) 32 Alkaline Phosphatase (<127 U/L) 177 H Troponin I (< 0.11 ng/ml) < 0.01 C-Reactive Prot, Quant (<1.0 mg/dL) < 0.5 Total Protein (6.3 - 8.2 g/dL) 7.7 Albumin (3.5 - 5.0 g/dL) 4.6 Globulin (1.9 - 4.2 gm/dL) 3.1 Albumin/Globulin Ratio (1.1 - 2.2 %) 1.5 Lipase (23 - 300 U/L) 34 PTH Intact (13.8 - 85 pg/ml) 18.6 Coagulation D-Dimer High Sensitivty (0 - 243 ng/ml) 526 H Hematology CBC w Diff MAN DIFF ORDERED WBC (4.8 - 10.8 /CUMM) 17.0 H RBC (4.20 - 5.40 /CUMM) 4.85 Hgb (12.0 - 16.0 G/DL) 15.7 Hct (37 - 47 %) 47.7 H MCV (81.0 - 99.0 FL) 98.3 MCH (27.0 - 31.0 PG) 32.3 H RDW (11.5 - 14.5 %) 12.6 Plt Count (130 - 400 /CUMM) 319 MPV (7.4 - 10.4 FL) 8.4 Gran % (42.2 - 75.2 %) 84.2 H Lymphocytes % (20.5 - 51.1 %) 10.7 L Monocytes % (1.7 - 9.3 %) 4.7 Eosinophils % (0 - 5 %) 0.2 Basophils % (0.0 - 2.0 %) 0.2 Absolute Granulocytes (1.4 - 6.5 /CUMM) 14.3 H Segmented Neutrophils (42.2 - 75.2 %) 71 Band Neutrophils (0.0 - 5.0 %) 7 H Absolute Lymphocytes (1.2 - 3.4 /CUMM) 1.8 Lymphocytes (20.5 - 51.1 %) 17 L Monocytes (1.7 - 9.3 %) 5 Absolute Monocytes (0.10 - 0.60 /CUMM) 0.8 H Absolute Eosinophils (0.0 - 0.7 /CUMM) 0 Absolute Basophils (0.0 - 0.2 /CUMM) 0 Platelet Estimate (ADEQUATE) VERIFIED BY SMEAR Normocytic RBCs VERIFIED Normochromic RBCs VERIFIED PUBS MCHC (33.0 - 37.0 G/DL) 32.9 L Miscellaneous Ref Lab Test Result Pending Serology C. difficile Tox B Gene Pending Imaging/Other Studies: 04/22/17: XRY-PORTABLE CHEST XRAY- Stable right lung postsurgical change. Small lung volumes. No definite acute parenchymal disease. 04/22/17: US TRIPLEX OF LOWER EXTREMITIES, BILATERAL- Normal triplex scan without evidence of deep venous thrombosis involving the lower extremities. 04/22/17: CT ABDOMEN AND PELVIS WITHOUT IV or PO CONTRAST- Findings are suspicious for mild diffuse colitis, primarily affecting the transverse and descending and sigmoid colon. No evidence of bowel obstruction or bowel perforation. Fat stranding surrounding the descending and sigmoid colon. No pneumatosis coli. No free air. No bowel obstruction. Normal AP. Normal TI. Rectus diastasis without hernia. Moderate ASHD of aorta. No AAA. Flattening of IVC, suggesting dehydration. Diffuse osteopenia. DJD. 04/24/17: EKG- NSR @ 98, normal axis, normal intervals, NSST. Assessment/Plan Assessment/Recommendations: 57 y/o female, with majority of tx in [place] area, past history of multiple sclerosis, chronic back pain on chronic rx narcotics (previously opioid dependent, claims to be off these since 2016), L3-L5 herniated disc post spinal fusion, mesothelioma post right lower rib & right upper lobectomy 2005 followed by CTX, seizures, remote CLARENCE (fibroids- ovaries intact), chronic anemia-> transfx, mild hyperCa2+, ? hx PUD, ex-20 pk yr cigarette smoker D/C 2006, without EtOH or illicit street drugs (although 04/22/17: Utox: + cannabis). 03/14/14: EGD to D3 with bxs by myself- J-shaped stomach with residual food, possible gastroparesis, patent pylorus, diffuse esophagitis with minimally irregular Z line at 35 cm, esophageal biopsies with fibrinopurulent exudate and ulcerative esophagitis, negative viral, negative fungal, negative Desai's with possible pill esophagitis, random biopsies D2/D3 negative for celiac disease, with normal villi 03/13/2014: elevated haptoglobin 335 03/14/2014: normal IgA 108, tTG and DGP Abs- both negative. 01/27/15: ERCP per Dr. Dinorah Ochoa- mildly dilated CBD 8-10 mm, no choledocholithiasis, patent cystic duct (consideration for EUS and/or Sphincter of Oddi manometry, as hx recurrent pancreatitis). *The patient subsequently had EUS at [facility] by Dr. Delgado- normal gallbladder/ bile duct/pancreas, and ulcerative esophagitis. *A repeat EGD and eventual colonoscopy were advised, but the patient was not compliant with these.*She has never had a colonoscopy, despite being urged to do so in the past. The patient presented to the [facility] 04/22/17 at 11:06 a.m., complaining of abdominal pain "10 out of 10" & SOB starting the p.m. before. She then had nausea & non-bloody, bilious vomiting, and watery diarrhea the morning of . The patient's abdominal pain was crampy and nonradiating in nature, mostly in the epigastric region, then becoming more diffuse. The stools became more watery, up to 6 times a day, & were independent of eating. There were questionable chills. She denied any fevers. The patient and her denied any sick contacts, recent travel, raw food ingestion, NSAIDS, or recent antibiotics [employer]. Upon arrival to the [facility] ER, BP 120/87, P 94, R 20, T 97, O2 sat RA 100%. The patient later spiked to 101.1 in the ER. She was treated with IV Dilaudid, Zofran, IV NS, Tylenol, IV Flagyl & Ceftriaxone in the ER. Her BP then dropped to the 90's systolic. Some of this could have been from the narcotics. A right femoral line was placed in the ER. She had positive lactate & was initially admitted to the ICU with leukocytosis. She has since been downgraded to telemetry. She had stable GERD, without any odynophagia or dysphagia. She denied any early satiety, hematemesis, melena, constipation, obstipation, tenesmus, or rectal bleeding. She claimed stools were OB negative on admission on digital rectal exam. She was seen by cardiology for atypical CP & occasional palpitations & is to have an outpt cardiac nuclear stress test. She denied any SOB. The patient was started on clears po & is tolerating this. She claimed her diarrhea was improving. Her abdominal cramps were slightly better. She denied any rashes or acute arthralgias. She denied any family history of GI CA, IBD, additional GI disease, or inherited liver disease. Her appetite was fair. She had no symptoms of UTI or URI. *She was hemoconcentrated on admission. 04/14/14: HAVM, Hep Bs Ag, Hep B core Ab, Hep C Ab- all negative. 04/22/17: Admission labs- WBC 17 (71S/7B/17L/5M), H/H 15.7/47.7, MCV 98.3, RDW 12.6, PLT 319, glu 168, BUN/Cr 21/1.0, GFR 57, Na 141, K 3.5, HCO3 22, AG 19, * lactate 3.1-> 4.9, lipase 34, Mg 2.3, Ca 11.2, albumin 4.6, glob 3.1, TBil 0.5, alk phos 177, AST 36, ALT 32, troponin < 0.01, *CRP < 0.5; U/A- clear orange, > 1.030, 6.5, 3-5 WBC, few hyaline & granular casts, many bacteria, tr ketone, tr protein; neg nitrite, neg esterase. 04/22/17: Utox: + cannabis 74.50 04/22/17: UC- negative. 04/22/17: Stool C&S, Shiga toxin, Giardia Ag, Crypto Ag, Vibrio, & C. difficile- all negative. 04/22/17: *C. diff PCR- pending, *Norovirus RNA- pending. 04/23/17: BC x 2- negative. 04/23/17: Nasopharyngeal swab- negative influenza A & B. 04/23/17: lactate 6.8- >3.7-> 2.3-> 2.1-> 1.6. 04/23/17: WBC 9.9 (65S/25B/9L/1M, H/H 12.5/37.8, MCV 98.7, RDW 12.6, PLT 249, glu 78, BUN/Cr 13/0.8, GFR > 60, Na 140, K 3.6, HCO3 24, AG 10, Ca 8.1, PO4 2.5, albumin 2.4, TBil 0.2, AST 21, ALT 37. 04/24/17: WBC 10.9, H/H 9.7/29, MCV 99.5, RDW 13.1, PLT 194, glu 77, BUN/Cr 12/ 0.8, GFR > 60, Na 144, K 3.2, HCO3 26, AG 10, Mg 1.8, Ca 8.1, PO4 1.9, albumin 2.2, TBil 0.1, AST 20, ALT 33. 04/24/17: glucose 86, BUN/Cr 11/0.8, GFR > 60, Na 142, K 3.7, HCO3 26, AG 8, Mg 2.2, Ca 8.0, PO4 1.5, albumin 2.3, TBil < 0.1, AST 21, ALT 29. 04/22/17: XRY-PORTABLE CHEST XRAY- Stable right lung postsurgical change. Small lung volumes. No definite acute parenchymal disease. 04/22/17: US TRIPLEX OF LOWER EXTREMITIES, BILATERAL- Normal triplex scan without evidence of deep venous thrombosis involving the lower extremities. 04/22/17: CT ABDOMEN AND PELVIS WITHOUT IV or PO CONTRAST- Findings are suspicious for mild diffuse colitis, primarily affecting the transverse and descending and sigmoid colon. No evidence of bowel obstruction or bowel perforation. Fat stranding surrounding the descending and sigmoid colon. No pneumatosis coli. No free air. No bowel obstruction. Normal AP. Normal TI. Rectus diastasis without hernia. Moderate ASHD of aorta. No AAA. Flattening of IVC, suggesting dehydration. Diffuse osteopenia. DJD. 04/24/17: EKG- NSR @ 98, normal axis, normal intervals, NSST. *As of the 04/24/16: GI consult, the patient's diarrhea appeared to be subsiding. Her abdominal cramps were improving. The patient was very dehydrated on presentation. She was hemoconcentrated. Her H/H dropped appropriately after IV fluids. She does have some baseline anemia. She had been delinquent in obtaining a baseline colonoscopy. The colitis was predominantly at the transverse colon/splenic flexure/sigmoid colon, near the "watershed area ", which is susceptible to low-flow. The patient may have had a viral gastroenteritis with secondary dehydration and ischemia. Cultures for bacterial enteritis, O&P were negative. Doubt IBD. Normal CRP noted. C. difficile was negative,with 04/22/17: C. difficile PCR & Norovirus- pending. I had a long discussion with the patient. If she did not improve clinically, I would push for an inpatient flexible sigmoidoscopy vs. baseline colonoscopy. The patient was improving clinically. Her preference would be to get an outpatient colonoscopy, once the acute inflammation subsides, although compliance has been an issue. SUGGEST: Clears po & gardually advance diet to low residue as tolerated. If stable in a.m., switch IV Ceftriaxone & Flagyl to po Cipro & Flagyl x 5-7 days total of antibiotics. *Await 04/22/17: *C. diff PCR- pending, *Norovirus RNA- pending. * Check ESR. *Consider fecal calprotectin. Mobilize patient as tolerated. DVT prophylaxis. Replete electrolytes. Serial CBC with diff. Serial abdominal exams. *Inpatient vs. outpatient flex sig vs. baseline colonoscopy, depending on clinical course. Watch for signs of stricture formation down the road, post possible ischemic colitis. Consideration for outpatient MRA vs. CTA abdomen. The patient was given my office number. Further GI recommendations to follow, depending on clinical course. The above was discussed with the medical housestaff. Problem List: 1. Diarrhea 2. Colitis 3. Abdominal pain 4. Anemia 5. Dehydration Copies To: Orquidea ALLEN,Adalid Kim; Candice ALLEN,Yaa; Mikey ALLEN,Bill; Keegan ALLEN,Abad Marquise; Shreya ALLEN,[facility] [place]; Vickie ALLEN PHD,Faheem K[place]; Maite ALLEN,[place] Consult Acknowledgment - Thank you for your consult request.
[2017-04-25] VITALS: BP 140/80
[2017-04-25 05:37] LABS: ABSOLUTE BASOPHIL COUNT 0 /CUMM (0.0-0.2); ABSOLUTE EOSINOPHIL COUNT 0.2 /CUMM (0.0-0.7); ABSOLUTE GRANULOCYTE CT 7.5 /CUMM (1.4-6.5); ABSOLUTE LYMPH COUNT 1.8 /CUMM (1.2-3.4); ABSOLUTE MONOCYTE COUNT 0.6 /CUMM (0.10-0.60); BASOPHIL % 0.3 % (0.0-2.0); EOSINOPHIL % 1.6 % (0-5); HEMATOCRIT 28.5 % (37-47); MEAN CORPUSCULAR HGB CONC 33.4 G/DL (33.0-37.0); MEAN CORPUSCULAR VOLUME 98.8 FL (81.0-99.0); MEAN PLATELET VOLUME 8.3 FL (7.4-10.4); PLATELET COUNT 199 /CUMM (130-400); RBC DISTRIBUTION WIDTH 12.7 % (11.5-14.5); RED BLOOD CELL CT 2.89 /CUMM (4.20-5.40); WHITE BLOOD CELL COUNT 10.2 /CUMM (4.8-10.8)
--- NOTE | 2017-04-25 07:32 | PN- Housestaff ---
Ingrid Rizzo 04/25/17 0732: Subjective Follow-up For: Colitis Severe dehydration - resolved Hypercalcemia- resolved Subjective: Patient has no complaints this a.m. She is anxious to be discharged today. Review of Systems Constitutional: Reports: see HPI. Objective Last 24 Hrs of Vital Signs/I&O Vital Signs Date Time Temp Pulse Resp B/P B/P Pulse O2 O2 Flow FiO2 Mean Ox Delivery Rate 04/25 1600 98.3 86 18 124/82 97 Room Air 04/25 0800 Room Air 04/25 0800 97.7 88 20 136/82 96 Room Air 04/25 0000 95 Room Air 04/25 0000 97.7 87 20 140/80 95 Room Air Intake & Output 04/25 1600 04/25 0800 04/25 0000 Intake Total 1530 200 790 Output Total 800 2 1800 Balance 730 198 -1010 Intake, IV 130 100 100 Intake, Oral 1400 100 690 Output, Urine 800 2 1800 Physical Exam General Appearance: Alert, Oriented X3, Cooperative, No Acute Distress Skin: R femoral line intact HEENT: Atraumatic, PERRLA, EOMI Neck: Supple, No JVD, No thryomegaly Cardiovascular: Regular Rate, Normal S1, Normal S2, No Murmurs Lungs: Clear to Auscultation Abdomen: Normal Bowel Sounds, Soft, No Tenderness Extremities: No Edema Current Medications: Current Medications Sig/Trace Start time Last Medication Dose Route Stop Time Status Admin Acetaminophen 1,000 MG Q8P PRN 04/23 0145 AC 04/23 N/A 1 UNIT IV 0308 Ceftriaxone Sodium 1,000 MG DAILY 04/23 1000 AC 04/25 IV 0917 Heparin Sodium 5,000 UNIT Q8 04/22 2200 AC 04/25 (Porcine) SC 1328 Hydromorphone HCl 2 MG ONCE ONE 04/25 1500 DC 04/25 PO 04/25 1501 1501 Hydromorphone HCl 1 MG ONCE ONE 04/25 1115 DC 04/25 IV 04/25 1116 1122 Hydromorphone HCl 0.4 MG ONCE ONE 04/24 1800 DC 04/24 IV 04/24 1801 1829 Levetiracetam 1,000 MG BID 04/22 2200 AC 04/25 PO 0916 Magnesium Oxide 400 MG BID 04/25 1000 AC 04/25 PO 01/11 2201 1111 Metronidazole 500 MG IQ8 04/23 0000 AC 04/25 N/A 1 UNIT IV 1528 Morphine Sulfate 2 MG Q4-6 PRN PRN 04/22 2130 AC 04/25 IV 0824 Oxycodone HCl 5 MG Q6H 04/22 2130 AC 04/25 PO 0916 Phosphate 250 MG PC AND AT BEDTIME 04/25 1300 AC 04/25 PO 04/26 1801 1328 Phosphate 250 MG PC AND AT BEDTIME 04/24 1300 DC 04/24 PO 04/24 1801 1959 Potassium Chloride 40 MEQ TID 04/25 1000 AC 04/25 PO 04/26 2201 1528 Quetiapine Fumarate 100 MG QAM 04/23 1000 AC 04/23 PO 0941 Quetiapine Fumarate 500 MG AT BEDTIME 04/22 2345 AC 04/24 PO 2239 Simethicone 80 MG ONCE ONE 04/24 1800 DC 04/24 PO 04/24 180 195 Trimethobenzamide HCl 200 MG TID PRN 04/22 2129 AC IM Last 24 Hrs of Lab/Silver Results Last 24 Hrs of Labs/Mics: Laboratory Tests 04/25/17 1110: ESR Westergren 61 H 04/25/17 0445: Anion Gap 8, Estimated GFR > 60, Glucose 108 H, Calcium 7.9 L, Phosphorus 1.7 L, Magnesium 1.8, Total Bilirubin < 0.1 L, AST 20, ALT 30, Albumin 2.4 L, CBC w Diff NO MAN DIFF REQ, RBC 2.89 L, MCV 98.8, MCH 33.0 H, RDW 12.7, MPV 8.3, Gran % 74.0, Lymphocytes % 18.0 L, Monocytes % 6.1, Eosinophils % 1.6, Basophils % 0.3, Absolute Granulocytes 7.5 H, Absolute Lymphocytes 1.8, Absolute Monocytes 0.6, Absolute Eosinophils 0.2, Absolute Basophils 0, PUBS MCHC 33.4 Assessment/Plan Assessment: Ms. Bangura is a 55 year old female with past medical history multiple sclerosis, chronic back pain, L 3, 4 and 5 disc herniations status post spinal fusion surgery, mesothelioma status post right lung resection, seizure disorder, recent acute cholecystitis status post ERCP in Feb 2015, presented to hospital with excruciating acute generalized abdominal pain and shortness of breath. Problem list/plan: #Severe dehydration, diffuse colitis, frequent diarrhea: CT scan on admission is positive for diffuse colitis, unclear if it is infectious. Central line was placed in the ED. Received vancomycin on admission. Stool studies sent for Vibrio. giardia, stool for ova and para, C. difficile, shiga toxin negative * Discontinued lactated Ringer's * Presented with lactic acidosis to 6.9, now nl * Continue ceftriaxone, metronidazole, change to Cipro and Flagyl PO upon discharge * C. difficle PCR pending * GI recommendations appreciated #Abnormal EKG: Nonspecific EKG changes. Troponin negative 3. Echocardiogram demonstrated EF of 60% with impaired LV relaxation * Cardiology recommendations appreciated #Hypercalcemia: - resolved Most likely secondary to dehydration * Monitor calcium level #Hypokalemia: * monitor closely and replete #Seizure disorder: * Continue on Keppra #Insomnia: * Continue on Seroquel #Diet * Liquid, advance as tolerated #DVT prophylaxis * Subcutaneous heparin #CODE STATUS * Full code Problem List: 1. Colitis Pain Ratin Pain Location: Abdominal Pain Goal: Remain pain free Pain Plan: NA Tomorrow's Labs & Rationales: None Bill Jensen 04/25/17 1147: Attending MD Review Statement Attending Statement Attending MD Statement: examined this patient, discuss w/resident/PA/MERIT SYSTEM DIRECTOR, agreed w/resident/PA/MERIT SYSTEM DIRECTOR, discussed with family, reviewed EMR data (avail), discussed with nursing, discussed with case mgmt, reviewed images, amended to note Attending Assessment/Plan: 57 o/f with severe dehydration and many loose stools epsiodes admitted to telemetry and transferred to ICU for close monitoring. Patient had severe lactic acidosis LA on arrival and admission. Patient is started on empiric abx. Patient seen/examined bedside. Patient feeling much better and hungry. Advacne to regular diet today. CT with pancolitis. Stool studies negative so far. Plan to change antibitoics to PO, f/u cultures remains negative so far. Leukocytosis improving with improvement in LA. Adavcne diet as tolerated, Appreicate GI input and recommend abx and outpatient colonscopy vs sigmoidscopy with Dr Pack. Anticipate dc soon as she tolerated her diet. Pain control with Po meds. Patient has h/o chronic pain and takes nerve block as outpatient with pain management Dr Allison as per patient. FOLLOW UP PCP in 3-[address] Pack in 2-3 weeks Pain management in 1-2 weeks
[2017-04-25 08:00] VITALS: BP 136/82
--- NOTE | 2017-04-25 09:45 | Patient Discharge Instructions ---
Discharge Instructions General Discharge Information You were seen/treated for: Colitis Severe dehydration Hypercalcemia You had these procedures: None Special Instructions: Follow up with the [facility] upon discharge for a treadmill nuclear stress test Follow up with the [facility] in 2 weeks for a colonoscopy Follow up with your PCP within 7 days of discharge regarding restarting HCTZ Diet Recommended Diet: Low Fat Activity Full Activity/No Limits: Yes Other activity limits: As tolerated Acute Coronary Syndrome Inclusion Criteria At DC or during hospital stay patient has or had the following: ACS DIAGNOSIS No Discharge Core Measures Meds if any: Prescribed or Continued at Discharge Meds if any: NOT Prescribed or Continued at Discharge Congestive Heart Failure Inclusion Criteria At DC or during hospital stay patient has or had the following: CHF DIAGNOSIS No Discharge Core Measures Meds if any: Prescribed or Continued at Discharge Meds if any: NOT Prescribed or Continued at Discharge Cerebrovascular accident Inclusion Criteria At DC or during hospital stay patient has or had the following: CVA/TIA Diagnosis No Discharge Core Measures Meds if any: Prescribed or Continued at Discharge Meds if any: NOT Prescribed or Continued at Discharge Venous thromboembolism Inclusion Criteria VTE Diagnosis No VTE Type NONE VTE Confirmed by (Test) NONE Discharge Core Measures - Per Current guidelines, there needs to be overlap - treatment for the first 5 days of Warfarin therapy. - If discharged on Warfarin prior to 5 days of - overlap therapy, the patient will need to be - assessed for post discharge needs including - *Post discharge parental anticoagulation - *Warfarin and/or parental anticoagulation education - *Follow up date to check INR post discharge At least 5 days overlap therapy as Inpatient No Meds if any: Prescribed or Continued at Discharge Note: Overlap Therapy is Warfarin and Anticoagulant Meds if any: NOT Prescribed or Continued at Discharge
[2017-04-25 10:16] LABS: C.DIFFICILE TOXIN B QL PCR NOT DETECTED (NOT DETECTED)
[2017-04-25] MEDS ORDERED: CIPRO500 M1 PO ×2 (10:24→10:33)
[2017-04-25] MEDS ORDERED: PHOS-NAK PACKE1 EACH PO ×2 (10:24→10:32)
[2017-04-25] MEDS ORDERED: ZOFRAN4 M2 PO ×2 (10:24→16:31)
[2017-04-25] MEDS ORDERED: METRONIDAZOLE500 M1 PO ×2 (10:24→10:33)
[2017-04-25] MEDS ORDERED: KLOR-CON M2020 ME1 PO ×2 (10:24→10:32)
[2017-04-25] MEDS ORDERED: MAGNESIUM OXID400 M1 PO ×2 (10:24→10:32)
[2017-04-25] MEDS ORDERED: OXYCODONE HCL5 M1 PO ×2 (10:49→11:05)
--- NOTE | 2017-04-25 13:42 | PN- Cardiology ---
Subjective Subjective: * No chest discomfort today. Breathing is comfortable. * Potassium is 3.1 Objective Vital Signs and I&Os Vital Signs Date Time Temp Pulse Resp B/P B/P Pulse O2 O2 Flow FiO2 Mean Ox Delivery Rate 04/25 799 Room Air 04/25 799 97.7 88 20 136/82 96 Room Air 04/25 0000 95 Room Air 04/25 0000 97.7 87 20 140/80 95 Room Air 04/24 1600 97 Room Air 04/24 1600 98.2 86 16 132/76 97 Room Air Intake & Output 04/25 1600 04/25 0000 04/24 1600 04/24 0000 Intake Total 781 710 4484 821 838 Output Total 2 1800 8323 961 0562 Balance 198 -1010 -150 -29 -462 Intake, IV 807 068 8049 821 838 Intake, Oral 100 690 600 Number 0 0 Bowel Movements Output, Stool 0 Output, Urine 2 1800 [phone] Patient 196 lb Weight Physical Exam: General: WD/WN female in NAD; alert and oriented x 3 HEENT: NC/AT, PERRL, EOMI Neck: no JVD, no carotid bruit Heart: RRR with 2/6 systolic murmur Lungs: clear bilaterally Abdomen: soft, diffusely tender, +ve bowel sounds Extremities: no edema Assessment/Plan Assessment/Plan * Replete potassium to 4.0. * This patient does have risk factors for coronary artery disease, in particular , a family history of premature CAD in her father. She also has chest discomfort and palpitations that appear to be related to PVC's. Nevertheless, some of the feature of her chest discomfort are atypical. I would like to risk stratify her with a treadmill nuclear stress test when her current illness has improved. This will be scheduled as an outpatient. No additional cardiac medications for now. Continue telemetry? Yes
[2017-04-25] MEDS ORDERED: DILAUDID2 M1 PO (14:58)
[2017-04-25 16:00] VITALS: BP 124/82
--- NOTE | 2017-04-25 17:05 | PN- Gastroenterology ---
Assessment/Plan Assessment/Recommendations: 57 y/o female, with majority of tx in [place] area, past history of multiple sclerosis, chronic back pain on chronic rx narcotics (previously opioid dependent, claims to be off these since 2016), L3-L5 herniated disc post spinal fusion, mesothelioma post right lower rib & right upper lobectomy 2005 followed by CTX, seizures, remote CLARENCE (fibroids- ovaries intact), chronic anemia-> transfx, mild hyperCa2+, ? hx PUD, ex-20 pk yr cigarette smoker D/C 2006, without EtOH or illicit street drugs (although 04/22/17: Utox: + cannabis). 03/14/14: EGD to D3 with bxs by myself- J-shaped stomach with residual food, possible gastroparesis, patent pylorus, diffuse esophagitis with minimally irregular Z line at 35 cm, esophageal biopsies with fibrinopurulent exudate and ulcerative esophagitis, negative viral, negative fungal, negative Desai's with possible pill esophagitis, random biopsies D2/D3 negative for celiac disease, with normal villi 03/13/2014: elevated haptoglobin 335 03/14/2014: normal IgA 108, tTG and DGP Abs- both negative. 01/27/15: ERCP per Dr. Dinorah Ochoa- mildly dilated CBD 8-10 mm, no choledocholithiasis, patent cystic duct (consideration for EUS and/or Sphincter of Oddi manometry, as hx recurrent pancreatitis). *The patient subsequently had EUS at [facility] by Dr. Delgado- normal gallbladder/ bile duct/pancreas, and ulcerative esophagitis. *A repeat EGD and eventual colonoscopy were advised, but the patient was not compliant with these.*She has never had a colonoscopy, despite being urged to do so in the past. The patient presented to the [facility] 04/22/17 at 11:06 a.m., complaining of abdominal pain "10 out of 10" & SOB starting the p.m. before. She then had nausea & non-bloody, bilious vomiting, and watery diarrhea the morning of . The patient's abdominal pain was crampy and nonradiating in nature, mostly in the epigastric region, then becoming more diffuse. The stools became more watery, up to 6 times a day, & were independent of eating. There were questionable chills. She denied any fevers. The patient and her denied any sick contacts, recent travel, raw food ingestion, NSAIDS, or recent antibiotics CALL [facility]. Upon arrival to the [facility] ER, BP 120/87, P 94, R 20, T 97, O2 sat RA 100%. The patient later spiked to 101.1 in the ER. She was treated with IV Dilaudid, Zofran, IV NS, Tylenol, IV Flagyl & Ceftriaxone in the ER. Her BP then dropped to the 90's systolic. Some of this could have been from the narcotics. A right femoral line was placed in the ER. She had positive lactate & was initially admitted to the ICU with leukocytosis. She has since been downgraded to telemetry. She had stable GERD, without any odynophagia or dysphagia. She denied any early satiety, hematemesis, melena, constipation, obstipation, tenesmus, or rectal bleeding. She claimed stools were OB negative on admission on digital rectal exam. She was seen by cardiology for atypical CP & occasional palpitations & is to have an outpt cardiac nuclear stress test. She denied any SOB. The patient was started on clears po & is tolerating this. She claimed her diarrhea was improving. Her abdominal cramps were slightly better. She denied any rashes or acute arthralgias. She denied any family history of GI CA, IBD, additional GI disease, or inherited liver disease. Her appetite was fair. She had no symptoms of UTI or URI. *She was hemoconcentrated on admission. 04/14/14: HAVM, Hep Bs Ag, Hep B core Ab, Hep C Ab- all negative. 04/22/17: Admission labs- WBC 17 (71S/7B/17L/5M), H/H 15.7/47.7, MCV 98.3, RDW 12.6, PLT 319, glu 168, BUN/Cr 21/1.0, GFR 57, Na 141, K 3.5, HCO3 22, AG 19, * lactate 3.1-> 4.9, lipase 34, Mg 2.3, Ca 11.2, albumin 4.6, glob 3.1, TBil 0.5, alk phos 177, AST 36, ALT 32, troponin < 0.01, *CRP < 0.5; U/A- clear orange, > 1.030, 6.5, 3-5 WBC, few hyaline & granular casts, many bacteria, tr ketone, tr protein; neg nitrite, neg esterase. 04/22/17: Utox: + cannabis 74.50 04/22/17: UC- negative. 04/22/17: Stool C&S, Shiga toxin, Giardia Ag, Crypto Ag, Vibrio, & C. difficile- all negative. 04/22/17: *C. diff PCR- negative, *Norovirus RNA- pending. 04/23/17: BC x 2- negative. 04/23/17: Nasopharyngeal swab- negative influenza A & B. 04/23/17: lactate 6.8- >3.7-> 2.3-> 2.1-> 1.6. 04/23/17: WBC 9.9 (65S/25B/9L/1M, H/H 12.5/37.8, MCV 98.7, RDW 12.6, PLT 249, glu 78, BUN/Cr 13/0.8, GFR > 60, Na 140, K 3.6, HCO3 24, AG 10, Ca 8.1, PO4 2.5, albumin 2.4, TBil 0.2, AST 21, ALT 37. 04/24/17: WBC 10.9, H/H 9.7/29, MCV 99.5, RDW 13.1, PLT 194, glu 77, BUN/Cr 12/ 0.8, GFR > 60, Na 144, K 3.2, HCO3 26, AG 10, Mg 1.8, Ca 8.1, PO4 1.9, albumin 2.2, TBil 0.1, AST 20, ALT 33. 04/24/17: glucose 86, BUN/Cr 11/0.8, GFR > 60, Na 142, K 3.7, HCO3 26, AG 8, Mg 2.2, Ca 8.0, PO4 1.5, albumin 2.3, TBil < 0.1, AST 21, ALT 29. 04/22/17: XRY-PORTABLE CHEST XRAY- Stable right lung postsurgical change. Small lung volumes. No definite acute parenchymal disease. 04/22/17: US TRIPLEX OF LOWER EXTREMITIES, BILATERAL- Normal triplex scan without evidence of deep venous thrombosis involving the lower extremities. 04/22/17: CT ABDOMEN AND PELVIS WITHOUT IV or PO CONTRAST- Findings are suspicious for mild diffuse colitis, primarily affecting the transverse and descending and sigmoid colon. No evidence of bowel obstruction or bowel perforation. Fat stranding surrounding the descending and sigmoid colon. No pneumatosis coli. No free air. No bowel obstruction. Normal AP. Normal TI. Rectus diastasis without hernia. Moderate ASHD of aorta. No AAA. Flattening of IVC, suggesting dehydration. Diffuse osteopenia. DJD. 04/24/17: EKG- NSR @ 98, normal axis, normal intervals, NSST. *As of the 04/24/16: GI consult, the patient's diarrhea appeared to be subsiding. Her abdominal cramps were improving. The patient was very dehydrated on presentation. She was hemoconcentrated. Her H/H dropped appropriately after IV fluids. She does have some baseline anemia. She had been delinquent in obtaining a baseline colonoscopy. The colitis was predominantly at the transverse colon/splenic flexure/sigmoid colon, near the "watershed area ", which is susceptible to low-flow. The patient may have had a viral gastroenteritis with secondary dehydration and ischemia. Cultures for bacterial enteritis, O&P were negative. Doubt IBD. Normal CRP noted. C. difficile was negative,with 04/22/17: C. difficile PCR & Norovirus- pending. I had a long discussion with the patient. If she did not improve clinically, I would push for an inpatient flexible sigmoidoscopy vs. baseline colonoscopy. The patient was improving clinically. Her preference would be to get an outpatient colonoscopy, once the acute inflammation subsides, although compliance has been an issue. 04/22/17: *C. diff PCR- negative. 04/22/17: *Norovirus RNA PCR- pending. 04/25/17: WBC 10.2, H/H 9.6/28.5, PLT 199, glu 108, BUN/Cr 5/0.7, GFR > 60, Na 146, *K 3.1, HCO3 26, AG 8, Mg 1.8, Ca 7.9, *PO4 1.7, albumin 2.4, TBil < 0.1, AST 20, ALT 30, *ESR 61. *As of 04/25/17, the patient remained hemodynamically stable & afebrile, with O2 sat RA 96%. IV Ceftriaxone & Flagyl are to be converted to po Cipro & Flagyl. She was ambulating and tolerating a low-residue diet. She denied any rectal bleeding or diarrhea. Her abdominal cramps were improved. She denied any fevers, chills, CP, SOB, nausea, or vomiting. Medicine & cardiology notes appreciated. SUGGEST: *Low residue diet as tolerated. *Switch IV Ceftriaxone & Flagyl to po Cipro & Flagyl x 5-7 days total of antibiotics. *Await 04/22/17: *Norovirus RNA- pending. *Consider fecal calprotectin. Mobilize patient as tolerated. DVT prophylaxis. *Replete electrolytes (i.e.- KPhos). Serial CBC with diff. Serial abdominal exams. *Inpatient vs. outpatient flex sig vs. baseline colonoscopy, depending on clinical course. Watch for signs of stricture formation down the road, post possible ischemic colitis. Consideration for outpatient MRA vs. CTA abdomen. The patient was given my office number & the case was discussed with her , as well, at the bedside, on 04/25/17, as per patient request. *As the patient is clinically improved, on po antibiotics, ambulating, and tolerating a low-residue diet, there is currently no GI contraindication to having the patient be discharged to home. I told the patient to contact my office, if her symptoms flare. Otherwise, I advised a baseline colonoscopy in 1 -2 months, to clear her colonic mucosa. The above was discussed with the patient's RN & previously discussed with the medical housestaff. *Further inpatient GI follow-up as needed. Problem List: 1. Diarrhea 2. Colitis 3. Abdominal pain 4. Anemia 5. Dehydration 6. Hypokalemia Subjective Subjective: 04/22/17: *C. diff PCR- negative. 04/22/17: *Norovirus RNA PCR- pending. 04/25/17: WBC 10.2, H/H 9.6/28.5, PLT 199, glu 108, BUN/Cr 5/0.7, GFR > 60, Na 146, *K 3.1, HCO3 26, AG 8, Mg 1.8, Ca 7.9, *PO4 1.7, albumin 2.4, TBil < 0.1, AST 20, ALT 30, *ESR 61. *As of 04/25/17, the patient remained hemodynamically stable & afebrile, with O2 sat RA 96%. IV Ceftriaxone & Flagyl are to be converted to po Cipro & Flagyl. She was ambulating and tolerating a low-residue diet. She denied any rectal bleeding or diarrhea. Her abdominal cramps were improved. She denied any fevers, chills, CP, SOB, nausea, or vomiting. Medicine & cardiology notes appreciated. Review of Systems: Full 14 point review of systems otherwise noncontributory, and as above. Review of Systems Constitutional: Denies: chills, diaphoresis, fever, malaise, weakness, unexplained weight loss. EENTM: Denies: blurred vision, double vision, visual changes, eye pain, eye drainage, eye tearing, icterus, ear discharge, ear pain, ear redness, hearing changes, nasal congestion, epistaxis, nasal pain, throat pain, throat swelling, mouth pain, tooth pain. Cardiovascular: Reports: chest pain (atypical)- resolved. Denies: edema, orthopena, palpitations, peripheral edema, syncope. Respiratory: Denies: cough, hemoptysis, orthopnea, short of breath, sputum production, stridor, wheezing. GI: Reports: abdominal pain (cramps improving), diarrhea (resolved), nausea ( resolved), vomiting (resolved). Denies: bloating, constipation, distention, bowel incontinence, melena, bloody stool, changes in stool, steatorrhea. Genitourinary: Denies: discharge, dysuria, frequency, hematuria, hesitation, nocturia, pain, urgency. Musculoskeletal: Reports: back pain (chronic). Denies: gout, joint pain, joint swelling, muscle pain, muscle stiffness, neck pain. Skin: Denies: cysts, change in skin color, change in hair/nails, dryness, erythema, jaundice, lesions, lymphangitis, lumps, moles, rash. Neurological/Psychological: Reports: anxiety, emotional problems, insomnia. Denies: ataxia, cognitive dysfunction, confusion, depressed, dementia, headache, numbness, paresthesia, pre-existing deficit, petit mal seizures, tingling, tremors, tonic-clonic seizures, unable to move lower ext, unable to move upper ext, weakness. Hematologic/Endocrine: Denies: bruising, bleeding, polyuria, polydipsia. Immunologic/Allergic: Denies: splenectomy, HIV/AIDS, lymphadenopathy. All Other Systems: Reviewed and Negative Objective Vital Signs and I&Os Vital Signs Date Time Temp Pulse Resp B/P B/P Pulse O2 O2 Flow FiO2 Mean Ox Delivery Rate 04/25 1600 98.3 86 18 124/82 97 Room Air 04/25 0800 Room Air 04/25 0800 97.7 88 20 136/82 96 Room Air 04/25 0000 95 Room Air 04/25 0000 97.7 87 20 140/80 95 Room Air Intake & Output 04/25 1600 04/25 0400 04/24 1600 04/24 0400 04/23 1600 04/23 0400 Intake Total 7089 790 7916 838 4220 3200 Output Total 802 1800 2650 1300 1025 150 Balance 928 -1010 -179 -462 3195 3050 Intake, IV 680 905 3849 838 4100 3200 Intake, Oral 1500 690 600 120 Number 0 0 3 2 Bowel Movements Output, Stool 0 125 Output, Urine 802 1800 2650 1300 900 150 Patient 196 lb 196 lb Weight Weight Bed scale Measurement Method Physical Exam: Well-developed, slightly malnourished female, in no apparent distress. Non-toxic appearing. Sclera anicteric. Conjunctiva pink. Oropharynx clear. No oral thrush. No aphthous ulcers. Slightly dry mucus membranes. There is no adenopathy , thyromegaly, or JVD. No peripheral stigmata of inflammatory bowel disease or chronic liver disease on exam. No spiders on the anterior chest wall. No CVA tenderness. Lungs: clear to A&P. No wheezing, rales, or rhonchi. Slight decreased BS on right. Heart exam: regular rate rhythm, S1 and S2, with I/ systolic murmur. Abdominal exam: normal bowel sounds, soft belly, currently nontender, without guarding or rebound. Rectus diastasis without palpable hernia, otherwise no mass. No organomegaly. No fluid shift. No pulsatile mass. No epigastric bruit. Clinically, without megacolon. Repeat digital rectal exam: deferred by patient (reportedly OB-neg on admission, API). Extremities: without C, C, or E. No palpable cords. Mild DJD. No rash. No palmar erythema. No Dupuytren's contractures. Distal pulses 2+ bilaterally. DTRs 2+ bilaterally. Alert and oriented x 3. No tremor. No asterixis. Motor 5/5 B/L. A detailed neuro exam for MS was deferred. Current Medications: Current Medications Sig/Trace Start time Last Medication Dose Route Stop Time Status Admin Acetaminophen 1,000 MG Q8P PRN 04/23 0145 AC 04/23 N/A 1 UNIT IV 0308 Ceftriaxone Sodium 1,000 MG DAILY 04/23 1000 AC 04/25 IV 0917 Heparin Sodium 5,000 UNIT Q8 04/22 2200 AC 04/25 (Porcine) SC 1328 Hydromorphone HCl 2 MG ONCE ONE 04/25 1500 DC 04/25 PO 04/25 1501 1501 Hydromorphone HCl 1 MG ONCE ONE 04/25 1115 DC 04/25 IV 04/25 1116 1122 Hydromorphone HCl 0.4 MG ONCE ONE 04/24 1800 DC 04/24 IV 04/24 1801 1829 Levetiracetam 1,000 MG BID 04/22 2200 AC 04/25 PO 0916 Magnesium Oxide 400 MG BID 04/25 1000 AC 04/25 PO 04/27 2201 1111 Metronidazole 500 MG IQ8 04/23 0000 AC 04/25 N/A 1 UNIT IV 1528 Morphine Sulfate 2 MG Q4-6 PRN PRN 04/22 2130 AC 04/25 IV 0824 Oxycodone HCl 5 MG Q6H 04/22 2130 AC 04/25 PO 0916 Phosphate 250 MG PC AND AT BEDTIME 04/25 1300 AC 04/25 PO 04/26 1801 1328 Phosphate 250 MG PC AND AT BEDTIME 04/24 1300 DC 04/24 PO 04/24 1801 1959 Potassium Chloride 40 MEQ TID 04/25 1000 AC 04/25 PO 04/26 2201 1528 Quetiapine Fumarate 100 MG QAM 04/23 1000 AC 04/23 PO 0941 Quetiapine Fumarate 500 MG AT BEDTIME 04/22 2345 AC 04/24 PO 2239 Simethicone 80 MG ONCE ONE 04/24 1800 DC 04/24 PO 04/24 1801 1958 Trimethobenzamide HCl 200 MG TID PRN 04/22 2130 AC IM Results Pertinent Lab Results: Laboratory Tests 04/25 04/25 04/24 1110 0445 1027 Chemistry Sodium (137 - 145 mmol/L) 146 H 142 Potassium (3.5 - 5.1 mmol/L) 3.1 L 3.7 Chloride (98 - 107 mmol/L) 111 H 109 H Carbon Dioxide (22 - 30 mmol/L) 26 26 Anion Gap (5 - 16) 8 8 BUN (7 - 17 mg/dL) 5 L 11 Creatinine (0.5 - 1.0 mg/dL) 0.7 0.8 Estimated GFR (>60 ml/min) > 60 > 60 Glucose (65 - 99 mg/dL) 108 H 86 Calcium (8.4 - 10.2 mg/dL) 7.9 L 8.0 L Phosphorus (2.5 - 4.5 mg/dL) 1.7 L 1.5 L Magnesium (1.6 - 2.3 mg/dL) 1.8 2.2 Total Bilirubin (0.2 - 1.3 mg/dL) < 0.1 L < 0.1 L AST (14 - 36 U/L) 20 21 ALT (9 - 52 U/L) 30 29 Albumin (3.5 - 5.0 g/dL) 2.4 L 2.3 L Hematology CBC w Diff NO MAN DIFF REQ WBC (4.8 - 10.8 /CUMM) 10.2 RBC (4.20 - 5.40 /CUMM) 2.89 L Hgb (12.0 - 16.0 G/DL) 9.6 L Hct (37 - 47 %) 28.5 L MCV (81.0 - 99.0 FL) 98.8 MCH (27.0 - 31.0 PG) 33.0 H RDW (11.5 - 14.5 %) 12.7 Plt Count (130 - 400 /CUMM) 199 MPV (7.4 - 10.4 FL) 8.3 Gran % (42.2 - 75.2 %) 74.0 Lymphocytes % (20.5 - 51.1 %) 18.0 L Monocytes % (1.7 - 9.3 %) 6.1 Eosinophils % (0 - 5 %) 1.6 Basophils % (0.0 - 2.0 %) 0.3 Absolute Granulocytes (1.4 - 6.5 /CUMM) 7.5 H Absolute Lymphocytes (1.2 - 3.4 /CUMM) 1.8 Absolute Monocytes (0.10 - 0.60 /CUMM) 0.6 Absolute Eosinophils (0.0 - 0.7 /CUMM) 0.2 Absolute Basophils (0.0 - 0.2 /CUMM) 0 PUBS MCHC (33.0 - 37.0 G/DL) 33.4 ESR Westergren (0 - 20 MM) 61 H 04/24 04/24 04/23 0507 0143 2054 Chemistry Sodium (137 - 145 mmol/L) 144 140 Potassium (3.5 - 5.1 mmol/L) 3.2 L 3.6 Chloride (98 - 107 mmol/L) 108 H 106 Carbon Dioxide (22 - 30 mmol/L) 26 24 Anion Gap (5 - 16) 10 10 BUN (7 - 17 mg/dL) 12 13 Creatinine (0.5 - 1.0 mg/dL) 0.8 0.8 Estimated GFR (>60 ml/min) > 60 > 60 Glucose (65 - 99 mg/dL) 77 78 Calcium (8.4 - 10.2 mg/dL) 8.1 L 8.1 L Phosphorus (2.5 - 4.5 mg/dL) 1.9 L 2.5 Magnesium (1.6 - 2.3 mg/dL) 1.8 1.8 Total Bilirubin (0.2 - 1.3 mg/dL) 0.1 L 0.2 AST (14 - 36 U/L) 20 21 ALT (9 - 52 U/L) 33 37 Troponin I (< 0.11 ng/ml) 0.01 Albumin (3.5 - 5.0 g/dL) 2.2 L 2.4 L Hematology CBC w Diff NO MAN DIFF REQ WBC (4.8 - 10.8 /CUMM) 10.9 H RBC (4.20 - 5.40 /CUMM) 2.92 L Hgb (12.0 - 16.0 G/DL) 9.7 L Hct (37 - 47 %) 29.0 L MCV (81.0 - 99.0 FL) 99.5 H MCH (27.0 - 31.0 PG) 33.1 H RDW (11.5 - 14.5 %) 13.1 Plt Count (130 - 400 /CUMM) 194 MPV (7.4 - 10.4 FL) 8.2 Gran % (42.2 - 75.2 %) 76.4 H Lymphocytes % (20.5 - 51.1 %) 16.2 L Monocytes % (1.7 - 9.3 %) 6.8 Eosinophils % (0 - 5 %) 0.5 Basophils % (0.0 - 2.0 %) 0.1 Absolute Granulocytes (1.4 - 6.5 /CUMM) 8.3 H Absolute Lymphocytes (1.2 - 3.4 /CUMM) 1.8 Absolute Monocytes (0.10 - 0.60 /CUMM) 0.7 H Absolute Eosinophils (0.0 - 0.7 /CUMM) 0 Absolute Basophils (0.0 - 0.2 /CUMM) 0 PUBS MCHC (33.0 - 37.0 G/DL) 33.3 04/23 04/23 04/23 04/23 04/23 1509 1425 1224 1037 0732 Chemistry Sodium (137 - 145 mmol/L) 139 Potassium (3.5 - 5.1 mmol/L) 3.3 L Chloride (98 - 107 mmol/L) 106 Carbon Dioxide (22 - 30 mmol/L) 24 Anion Gap (5 - 16) 9 BUN (7 - 17 mg/dL) 16 Creatinine (0.5 - 1.0 mg/dL) 0.7 Estimated GFR (>60 ml/min) > 60 BUN/Creatinine Ratio (7 - 25 %) 22.9 Lactic Acid (0.7 - 2.1 mmol/L) Cancelled 1.6 Cancelled 2.1 2.3 H Magnesium (1.6 - 2.3 mg/dL) 1.5 L 04/23 04/23 04/23 04/23 0732 0259 0259 0259 Chemistry Sodium (137 - 145 mmol/L) 134 L 135 L Potassium (3.5 - 5.1 mmol/L) 3.5 3.0 L Chloride (98 - 107 mmol/L) 102 103 Carbon Dioxide (22 - 30 mmol/L) 22 20 L Anion Gap (5 - 16) 10 11 BUN (7 - 17 mg/dL) 17 20 H Creatinine (0.5 - 1.0 mg/dL) 0.7 0.7 Estimated GFR (>60 ml/min) > 60 > 60 BUN/Creatinine Ratio (7 - 25 %) 24.3 28.6 H Lactic Acid (0.7 - 2.1 mmol/L) 3.7 H Troponin I (< 0.11 ng/ml) 0.01 Hematology CBC w Diff MAN DIFF ORDERED WBC (4.8 - 10.8 /CUMM) 9.9 RBC (4.20 - 5.40 /CUMM) 3.83 L Hgb (12.0 - 16.0 G/DL) 12.5 Hct (37 - 47 %) 37.8 MCV (81.0 - 99.0 FL) 98.7 MCH (27.0 - 31.0 PG) 32.6 H RDW (11.5 - 14.5 %) 12.6 Plt Count (130 - 400 /CUMM) 249 MPV (7.4 - 10.4 FL) 8.4 Gran % (42.2 - 75.2 %) 90.2 H Lymphocytes % (20.5 - 51.1 %) 7.8 L Monocytes % (1.7 - 9.3 %) 2.0 Eosinophils % (0 - 5 %) 0 Basophils % (0.0 - 2.0 %) 0 Absolute Granulocytes (1.4 - 6.5 /CUMM) 9.0 H Segmented Neutrophils (42.2 - 75.2 %) 65 Band Neutrophils (0.0 - 5.0 %) 25 H Absolute Lymphocytes (1.2 - 3.4 /CUMM) 0.8 L Lymphocytes (20.5 - 51.1 %) 9 L Monocytes (1.7 - 9.3 %) 1 L Absolute Monocytes (0.10 - 0.60 /CUMM) 0.2 Absolute Eosinophils (0.0 - 0.7 /CUMM) 0 Absolute Basophils (0.0 - 0.2 /CUMM) 0 Platelet Estimate (ADEQUATE) ADEQUATE Normocytic RBCs VERIFIED Normochromic RBCs VERIFIED PUBS MCHC (33.0 - 37.0 G/DL) 33.1 04/23 04/23 04/22 04/22 0025 0025 1 8 Chemistry Lactic Acid (0.7 - 2.1 mmol/L) 6.8 H Calcium (8.4 - 10.2 mg/dL) 9.5 Cancelled Troponin I (< 0.11 ng/ml) 0.02 Toxicology Methadone Screen Cancelled Barbiturate Screen Cancelled Ur Phencyclidine Scrn Cancelled Amphetamines Screen Cancelled U Benzodiazepines Scrn Cancelled Urine Cocaine Screen Cancelled Urine Cannabis Screen Cancelled 04/22 1906 Toxicology Urine Opiates Screen (>2000 NG/ML) 1716.00 Methadone Screen (>300 NG/ML) 77 Barbiturate Screen (>200 NG/ML) < 60 Ur Phencyclidine Scrn (>25 NG/ML) 14.40 Amphetamines Screen (>1000 NG/ML) < 100 U Benzodiazepines Scrn (>200 NG/ML) < 85 Urine Cocaine Screen (>300 NG/ML) < 50 Urine Cannabis Screen (>50 NG/ML) 74.50 H Urines Urine Color (YEL,AMB,STR) ORANG H Urine Clarity (CLEAR) CLEAR Urine pH (5.0 - 8.0) 6.5 Ur Specific [place] (1.001 - 1.035) >= 1.030 Urine Protein (NEG,<30 MG/DL) TRACE H Urine Ketones (NEG) TRACE H Urine Nitrite (NEG) NEG Urine Bilirubin (NEG) NEG@ICTO Urine Urobilinogen (0.1 - 1.0 EU/dl) 1.0 Ur Leukocyte Esterase (NEG) NEG Ur Microscopic SEDIMENT EXAMINED Urine WBC (0 - 2 /HPF) 3-5 H Ur Epithelial Cells (NONE,FEW) FEW Urine Bacteria (NEG/NONE) MANY H Hyaline Casts (0/LPF) FEW H Granular Casts (NONE /LPF) FEW H Urine Mucus (FEW,NONE) FEW Urine Hemoglobin (NEG) NEG Urine Glucose (N MG/DL) NEG Imaging/Other Studies: 04/22/17: XRY-PORTABLE CHEST XRAY- Stable right lung postsurgical change. Small lung volumes. No definite acute parenchymal disease. 04/22/17: US TRIPLEX OF LOWER EXTREMITIES, BILATERAL- Normal triplex scan without evidence of deep venous thrombosis involving the lower extremities. 04/22/17: CT ABDOMEN AND PELVIS WITHOUT IV or PO CONTRAST- Findings are suspicious for mild diffuse colitis, primarily affecting the transverse and descending and sigmoid colon. No evidence of bowel obstruction or bowel perforation. Fat stranding surrounding the descending and sigmoid colon. No pneumatosis coli. No free air. No bowel obstruction. Normal AP. Normal TI. Rectus diastasis without hernia. Moderate ASHD of aorta. No AAA. Flattening of IVC, suggesting dehydration. Diffuse osteopenia. DJD. 04/24/17: EKG- NSR @ 98, normal axis, normal intervals, NSST.
--- NOTE | 2017-04-25 17:36 | Discharge Summary ---
Visit Information Visit Dates Admission Date: 04/22/17 Discharge Date: 04/25/17 Hospital Course Course Attending Physician: Bill Jensen MD Primary Care Physician: Shreya ALLEN,[facility] Course: Ms. Bangura is a 55 year old female with past medical history multiple sclerosis, chronic back pain, L 3, 4 and 5 disc herniations status post spinal fusion surgery, mesothelioma status post right lung resection, seizure disorder, recent acute cholecystitis status post ERCP in Feb 2015, presented to hospital with diffused abdominal pain and shortness of breath. Active issues: Severe dehydration, diffuse colitis, frequent diarrhea Patient remained hemodynamically stable. She spiked a fever and was started on IV Ceftriaxone and Metronidazole. CT scan on admission is positive for diffuse colitis, unclear if it is infectious. Central line was placed in the ED. Received vancomycin on admission. Stool studies sent for Vibrio. giardia, stool for ova and para, C. difficile, shiga toxin negative * Discontinued lactated Ringer's * Presented with lactic acidosis to 6.9, now nl * Continue , change to Cipro and Flagyl for a course of 7 days * C. difficle PCR pending Abnormal EKG Patient was asymptomatic with nonspecific EKG changes. Troponin negative 3. Echocardiogram demonstrated EF of 60% with impaired LV relaxation. Cardiology was consulted. No medical intervention done. Hypercalcemia - resolved Most likely secondary to dehydration. We monitored her calcium level Hypokalemia We monitored and repleted her potassium History of Insomnia, Seizure disorder We continued her on Keppra and Seroquel Diet: She was started on a liquid diet and advanced to a low residue diet DVT prophylaxis: Subcutaneous heparin Allergies: Coded Allergies: No Known Allergies (10/17/16) Pertinent Lab Results: 04/22/17-ECHOCARDIOGRAM CONCLUSIONS 1. Normal EF of 60% with impaired LV relaxation. 2. Trace tricuspid regurgitation. 04/22/17-1132 XRY-PORTABLE CHEST XRAY IMPRESSION: Stable right lung postsurgical change. Small lung volumes. No definite acute parenchymal disease. 04/22/17-155 US-EXT BILAT VENOUS DOPPLER IMPRESSION: Normal triplex scan without evidence of deep venous thrombosis involving the lower extremities. Disposition Summary Disposition Principal Diagnosis: Colitis Additional Diagnosis: Severe dehydration Hypercalcemia Abnormal EKG Discharge Disposition: home or self care Discharge Instructions General Discharge Information Code Status: Full Code Patient's Diet: Advanced as tolerated Patient's Activity: As tolerated Follow-Up Instructions/Appts: Follow up with the Applications Manager upon discharge for a treadmill nuclear stress test Follow up with the Industry Segment Specialist in 2 weeks for a colonoscopy Follow up with your PCP within 7 days of discharge regarding restarting HCTZ Medications at Discharge Discharge Medications: Stop taking the following medications: Hydrochlorothiazide (Hydrochlorothiazide) 50 MG TABLET ORAL Every Morning Qty = 30 Continue taking these medications: Levetiracetam (Levetiracetam) 1,000 MG TABLET 1 Tablet ORAL TWICE DAILY Qty = 60 Comments: Last Taken: 04/25/17 Time: 9AM Quetiapine Fumarate (Quetiapine Fumarate) 100 MG TABLET 5 Tablet ORAL TAKE AT BEDTIME Qty = 120 Comments: Last Taken: 04/24/16 Time: 9PM Quetiapine Fumarate (Quetiapine Fumarate) 100 MG TABLET 1 Tablet ORAL Every Morning Qty = 30 Comments: NOT GIVEN WHILE IN HOSPITAL Calcium Carbonate (TUMS) 200 MG CALCIUM (500 MG) TAB.CHEW 2 Tablet ORAL Every 4 hours Comments: NOT GIVEN WHILE IN HOSPITAL Start taking the following new medications: Naph,Mb-Db/K pH,Mbdb (Phos-Nak Packet) 280 MG-160 MG-250 MG POWD.PACK 250 Milligram ORAL AFTER MEALS AND AT BEDTIME Qty = 28 No Refills Comments: Last Taken: 04/25/17 Time: 1PM Potassium Chloride (Klor-Con M20) 20 MEQ TAB.ER.PRT 40 Millequivalent ORAL TWICE DAILY Qty = 28 No Refills Comments: Last Taken: 04/25/17 Time: 3:30PM Magnesium Oxide (Magnesium Oxide) 400 MG TABLET 400 Milligram ORAL DAILY Qty = 14 No Refills Comments: Last Taken: 04/25/17 Time: 9AM Ciprofloxacin HCl (Cipro) 500 MG TABLET 1 Tablet ORAL TWICE DAILY Qty = 8 No Refills Instructions: . Metronidazole (Metronidazole) 500 MG TABLET 1 Tablet ORAL THREE TIMES DAILY Qty = 12 No Refills Instructions: . Comments: Last Taken: 04/25/17 Time: 3:30PM IV DOSE GIVEN WHILE IN HOSPITAL Oxycodone HCl (Oxycodone HCl) 5 MG TABLET 5 Milligram ORAL Q6H as needed for Abdominal pain not to exceed . per day Qty = 10 No Refills Ondansetron HCl (Zofran) 4 MG TABLET 1 Tablet ORAL Every 6-8 Hours as Needed as needed for Nausea Qty = 10 No Refills Instructions: . Hydromorphone HCl (Dilaudid) 2 MG TABLET 1 Tablet ORAL 2 x Daily as needed as needed for abdominal pain Qty = 10 No Refills Comments: Last Taken: 04/25/17 Time: 3PM Copies To: Sirena ALLEN,Arpit Burgess; Shreya ALLEN,Raul; Vickie ALLEN PHD,Faheem Escudero
== END 2017-04-25 18:18 | DRG 641 ==
LOC: ERH 11:06 → ERHI 18:46 → CRI 18:46 → ENRESERV 04-23 06:08 → CRI 04-23 06:49 → ENTRNSPT 04-25 18:07 → CRI 04-25 18:18 → CMPTRNSPT 04-25 18:28
PROVIDERS: Internal Medicine; Internal Medicine Infectious Disease; Physician Assistant Medical; Student in an Organized Health Care Education/Training Program
DX: E86.0 Dehydration (principal); K52.89 Other specified noninfective gastroenteritis and colitis; I95.89 Other hypotension; E46 Unspecified protein-calorie malnutrition; E87.2 Acidosis; E83.52 Hypercalcemia; G35 Multiple sclerosis; J44.9 Chronic obstructive pulmonary disease, unspecified; G89.29 Other chronic pain; I49.3 Ventricular premature depolarization; K21.9 Gastro-esophageal reflux disease without esophagitis; M54.5 Low back pain; G40.909 Epilepsy, unspecified, not intractable, without status epilepticus; G47.00 Insomnia, unspecified; E87.6 Hypokalemia; Z68.31 Body mass index [BMI] 31.0-31.9, adult; Z87.891 Personal history of nicotine dependence; Z98.1 Arthrodesis status
CPT/HCPCS: 87493; CCU; ERO; 36415; 71045; 74176; 80307; 81001; 82436; 87040; 87045; 87086; 87328; 87329; 87804; 87804-59; 93005; 93010; 93306; 93970; 96372; 96374; 96375; 96376; J0131; J0696; J1644; J3101; J7120